=== PATIENT | male | born 1980 | race Caucasian/White ===

== ENCOUNTER 2021-02-06 07:58 | Outpatient (REF) | payer BC, SELFPAY ==
[2021-02-06 08:18] LABS: COVID-19 Test Negative (Negative)
== END 2021-02-06 07:59 | disposition home or self-care (01) ==
LOC: HO.LAB 07:58
PROVIDERS: Visit Provider Internal Medicine
DX: Z20.822 Contact with and (suspected) exposure to COVID-19 (principal)
CPT/HCPCS: 36415; 87635; C9803

== ENCOUNTER 2021-07-15 06:52 | Outpatient (REF) | payer BC, SELFPAY ==
[2021-07-15 11:25] LABS: Appearance Urine CLEAR; Color Urine YELLOW; Glucose Urine UA NEG (NEG); Leukocyte Esterase Urine NEG (NEG); Nitrite Urine NEG (NEG); Specific Gravity - Urine <= 1.005 (1.005-1.025); Urine Blood NEG (NEG); Urine Ketones NEG (NEG); Urine Protein NEG (NEG-TRACE)
[2021-07-15 11:59] LABS: Alanine Aminotransferase 48 U/L (0-40); Albumin Level 4.6 g/dL (3.5-5.0); Alkaline Phosphatase 74 U/L (39-117); Anion Gap 17 (12-20); Aspartate Amino Transferase 38 U/L (5-37); Bilirubin Total 0.4 mg/dL (0.0-1.0); Blood Urea Nitrogen 8 mg/dL (9-16); Calcium 9.2 mg/dL (8.4-10.2); Carbon Dioxide 24 mmol/L (22-29); Chloride 102 mmol/L (96-108); Cholesterol 199 mg/dL; Estimated Glomerular Filt Rate > 60; Glucose Fasting 101 mg/dL (60-99); HDL Cholesterol 73 mg/dL; LDL Cholesterol Calculated 111 mg/dl; Potassium 4.1 mmol/L (3.3-5.1); Sodium 139 mmol/L (135-145); Total Protein 7.3 g/dL (6.5-8.0); Triglycerides 76 mg/dL
== END 2021-07-15 06:53 | disposition home or self-care (01) ==
LOC: HO.HMGCLDS 06:52
PROVIDERS: PCP Nurse Practitioner Family; Visit Provider Nurse Practitioner Family
DX: Z00.00 Encounter for general adult medical examination without abnormal findings (principal)
CPT/HCPCS: 36415; 80053; 80061; 81003; 84443

== ENCOUNTER 2021-07-27 06:44 | Outpatient (REF) | payer BC, SELFPAY ==
[2021-07-27 12:19] LABS: HBS Num1 2.52 mIU/mL (0-7.99); HBsAGNum1 0.18 S/CO (0.00-0.99); Hepatitis B Surface Antigen Negative (Negative); ~Hepatitis B Surface Antibody NONREACTIVE (Nonreactive)
[2021-07-27 12:57] LABS: HBc Num1 0.05 S/CO (0.00-0.79); Hepatitis B Core Antibody Nonreactive (Nonreactive); ~HepC Num1 0.06 S/CO (0.00-0.79); ~Hepatitis C Antibody Nonreactive (Nonreactive)
[2021-07-29 09:24] LABS: Hepatitis A Antibody IgM 0.15 Index (0-0.79); ~Hepatitis A Antibody IgM Nonreactive (Nonreactive)
== END 2021-07-27 06:45 | disposition home or self-care (01) ==
LOC: HO.HMGCLDS 06:44
PROVIDERS: PCP Nurse Practitioner Family; Visit Provider Nurse Practitioner Family
DX: R74.8 Abnormal levels of other serum enzymes (principal)
CPT/HCPCS: 36415; 86704; 86706; 86709; 86803; 87340

== ENCOUNTER 2021-08-19 08:08 | Outpatient (REF) | payer BC, SELFPAY ==
--- NOTE | ~2021-08-19 | US_ITS ---
EXAMINATION: US ABDOMEN COMPLETE CLINICAL INFORMATION: Abnormal levels of other serum enzymes. COMPARISON: MRI abdomen 08/20/2019. Ultrasound abdomen complete 07/25/2019. TECHNIQUE: Real-time imaging of the abdominal viscera. FINDINGS: PANCREAS: The body and the tail of the pancreas is homogeneous echotexture without enlargement. ABDOMINAL AORTA: The proximal, mid, and distal segments are normal in caliber. INFERIOR VENA CAVA: Visualized portions are normal. LIVER: The liver is normal in size. The liver contour is normal. Is increased liver echogenicity. No focal hepatic lesion. There is no intrahepatic biliary duct dilatation seen. GALLBLADDER: Gallbladder wall thickness is 0.27 cm.. The gallbladder is physiologically distended without evidence of stones, sludge, polyps, wall thickening or pericholecystic fluid. COMMON BILE DUCT: Normal in caliber measuring 0.31 cm in diameter. RIGHT KIDNEY: Normal. No hydronephrosis. No renal calculi or focal parenchymal lesions. The kidney measures 12.5 cm in maximum dimension. LEFT KIDNEY: Normal. No hydronephrosis. No renal calculi or focal parenchymal lesions. The kidney measures 12.5 cm in maximum dimension. SPLEEN: Normal. The spleen measures 10.0 cm in maximum dimension. FREE FLUID: None. US/US abdomen complete IMPRESSION: Diffuse increased liver echogenicity without focal lesion. There is no hepatomegaly. Rest of the abdominal ultrasound is unremarkable.
== END 2021-08-19 08:09 | disposition home or self-care (01) ==
LOC: HO.HMGCX 08:08
PROVIDERS: PCP Nurse Practitioner Family; Visit Provider Nurse Practitioner Family
DX: R74.8 Abnormal levels of other serum enzymes (principal)
CPT/HCPCS: 76700

== ENCOUNTER 2021-10-02 10:12 | Outpatient (REF) | payer BC, SELFPAY ==
--- NOTE | ~2021-10-02 | XR_ITS ---
EXAMINATION: XR RIBS, RIGHT CLINICAL INFORMATION: Pleurodynia COMPARISON: January 09, 2020 and July 20, 2019 TECHNIQUE: 3 views of the right ribs were obtained. PA chest FINDINGS: There is no evidence of acute parenchymal disease, pneumothorax, or pleural effusion. Heart normal size. No evidence of pulmonary edema. Status post previous vertebral plasty what appears to be T6. There are old fractures seen involving the right second and fourth ribs as well as a few left ribs. There is a new region of subpleural density measuring approximately 5.2 cm in vertical length and 1.3 cm in width within the mid lateral right lung. Adjacent to the pleural density there are nondisplaced fractures involving the seventh and eighth ribs. No pneumothorax. XR/XR ribs RT min 3V w CXR1V IMPRESSION: Multiple old healed right and left rib fractures. What appear to be new fractures since study of January 09, 2020 involving the lateral aspects of the right seventh and eighth ribs with adjacent pleural thickening. Clinical correlation to recent history of trauma is recommended.
== END 2021-10-02 10:13 | disposition home or self-care (01) ==
LOC: HO.HMGCX 10:12
PROVIDERS: PCP Nurse Practitioner Family; Visit Provider Nurse Practitioner Family
DX: R07.81 Pleurodynia (principal)
CPT/HCPCS: 71101

== ENCOUNTER → 2021-11-17 15:24 | Outpatient (BNVA) | payer BC, SELFPAY | PROVIDERS: PCP Nurse Practitioner Family; Referring Provider Nurse Practitioner Family; Visit Provider Nurse Practitioner ==

== ENCOUNTER → 2022-06-22 16:47 | Outpatient (BNVA) | payer OTHER, SELFPAY | PROVIDERS: PCP Nurse Practitioner Family; Visit Provider Nurse Practitioner | DX: R79.89 Other specified abnormal findings of blood chemistry (principal); Z80.0 Family history of malignant neoplasm of digestive organs; K63.5 Polyp of colon | CPT/HCPCS: 99212 ==

== ENCOUNTER 2022-07-06 09:14 | Outpatient (REF) | payer OTHER, SELFPAY ==
--- NOTE | ~2022-07-06 | XR_ITS ---
EXAMINATION: XR HIP, RIGHT. XR FEMUR, RIGHT. XR KNEE, RIGHT. CLINICAL INFORMATION: Right hip and knee pain COMPARISON: Right hip 11/15/2016. Right femur 10/07/2006. TECHNIQUE: AP and frog-lateral views of the right hip. AP and lateral radiographs of the right femur. 3 views of the right knee. FINDINGS: Stable appearance of the right hip fracture fixation and hardware. Mild right hip osteoarthritis with spurring along the superior acetabular rim. No acute or new abnormality. Right femur: Distal femur fracture fixation hardware has been removed. Fractures appear completely healed. Right knee: Mild tricompartmental osteoarthritis. No joint effusion. No acute abnormality. XR/XR hip RT min 2V IMPRESSION: RIGHT HIP: Healed fracture fixation. Mild right hip osteoarthritis. No change. RIGHT FEMUR/KNEE: Healed distal femur fracture. Mild tricompartmental osteoarthritis of the right knee.
--- NOTE | ~2022-07-06 | XR_ITS ---
EXAMINATION: XR HIP, RIGHT. XR FEMUR, RIGHT. XR KNEE, RIGHT. CLINICAL INFORMATION: Right hip and knee pain COMPARISON: Right hip 11/15/2016. Right femur 10/07/2006. TECHNIQUE: AP and frog-lateral views of the right hip. AP and lateral radiographs of the right femur. 3 views of the right knee. FINDINGS: Stable appearance of the right hip fracture fixation and hardware. Mild right hip osteoarthritis with spurring along the superior acetabular rim. No acute or new abnormality. Right femur: Distal femur fracture fixation hardware has been removed. Fractures appear completely healed. Right knee: Mild tricompartmental osteoarthritis. No joint effusion. No acute abnormality. XR/XR knee RT 2V IMPRESSION: RIGHT HIP: Healed fracture fixation. Mild right hip osteoarthritis. No change. RIGHT FEMUR/KNEE: Healed distal femur fracture. Mild tricompartmental osteoarthritis of the right knee.
--- NOTE | ~2022-07-06 | US_ITS ---
EXAMINATION: US ABDOMEN LIMITED CLINICAL INFORMATION: Abnormal LFTs. COMPARISON: Ultrasound abdomen complete 08/19/2021 and 07/25/2019. MRI abdomen 08/20/2019. TECHNIQUE: Real-time imaging of the right upper quadrant abdominal viscera. FINDINGS: PANCREAS: Normal. LIVER: Normal. The liver is normal in size. The liver contour is normal. Parenchymal echogenicity is normal. No focal hepatic lesion. There is no intrahepatic biliary duct dilatation seen. GALLBLADDER: The gallbladder wall thickness is 1.0 cm. There is fluid within the gallbladder wall. The gallbladder is physiologically distended without evidence of stones, sludge, polyps, or pericholecystic fluid. COMMON BILE DUCT: Normal in caliber measuring 0.3 cm in diameter. RIGHT KIDNEY: Normal. No hydronephrosis. No renal calculi or focal parenchymal lesions. The kidney measures 13.4 cm in maximum dimension. FREE FLUID: None. US/US abdomen limited IMPRESSION: No echogenic stones seen. However, there is mild thickened gallbladder wall with fluid within the gallbladder wall suspicious for acalculus cholecystitis. Correlate with clinical exam. The visualized liver, CBD and right kidney are unremarkable.
--- NOTE | ~2022-07-06 | XR_ITS ---
EXAMINATION: XR HIP, RIGHT. XR FEMUR, RIGHT. XR KNEE, RIGHT. CLINICAL INFORMATION: Right hip and knee pain COMPARISON: Right hip 11/15/2016. Right femur 10/07/2006. TECHNIQUE: AP and frog-lateral views of the right hip. AP and lateral radiographs of the right femur. 3 views of the right knee. FINDINGS: Stable appearance of the right hip fracture fixation and hardware. Mild right hip osteoarthritis with spurring along the superior acetabular rim. No acute or new abnormality. Right femur: Distal femur fracture fixation hardware has been removed. Fractures appear completely healed. Right knee: Mild tricompartmental osteoarthritis. No joint effusion. No acute abnormality. XR/XR femur RT 2V IMPRESSION: RIGHT HIP: Healed fracture fixation. Mild right hip osteoarthritis. No change. RIGHT FEMUR/KNEE: Healed distal femur fracture. Mild tricompartmental osteoarthritis of the right knee.
== END 2022-07-06 09:15 | disposition home or self-care (01) ==
LOC: HO.US 09:14
PROVIDERS: PCP Nurse Practitioner Family; Visit Provider Nurse Practitioner
DX: M25.551 Pain in right hip (principal); M25.561 Pain in right knee; M89.8X5 Other specified disorders of bone, thigh; R79.89 Other specified abnormal findings of blood chemistry
CPT/HCPCS: 73502; 73552; 73560; 76705

== ENCOUNTER 2022-07-19 10:59 | Outpatient (REF) | payer OTHER, SELFPAY ==
[2022-07-19 12:48] LABS: Ferritin 82 ng/mL (20-250)
[2022-07-21 13:47] LABS: Alpha Fetoprotein 2.8 ng/mL (<6.1)
[2022-07-22 12:42] LABS: Mitochondrial Antibodies NEGATIVE (NEGATIVE)
[2022-07-24 16:02] LABS: Smooth Muscle Antibody <20 U (<20)
== END 2022-07-19 11:00 | disposition home or self-care (01) ==
LOC: HO.LAB 10:59
PROVIDERS: PCP Nurse Practitioner Family; Visit Provider Nurse Practitioner
DX: Z00.00 Encounter for general adult medical examination without abnormal findings (principal); R79.89 Other specified abnormal findings of blood chemistry; Z13.220 Encounter for screening for lipoid disorders; Z13.29 Encounter for screening for other suspected endocrine disorder; Z80.0 Family history of malignant neoplasm of digestive organs
CPT/HCPCS: 36415; 82105; 82728; 86015; 86255; 86256

== ENCOUNTER → 2022-08-26 08:55 | Outpatient (BNVA) | payer OTHER, SELFPAY | PROVIDERS: PCP Nurse Practitioner Family; Visit Provider Nurse Practitioner Family | DX: H53.9 Unspecified visual disturbance (principal); F09 Unspecified mental disorder due to known physiological condition; Z87.820 Personal history of traumatic brain injury; Z82.49 Family history of ischemic heart disease and other diseases of the circulatory system | CPT/HCPCS: 99202 ==

== ENCOUNTER → 2022-08-27 07:51 | Outpatient (REF) | payer OTHER, SELFPAY ==
--- NOTE | ~2022-08-27 | NM_ITS ---
EXAMINATION: BILIARY TRACT IMAGING STUDY WITH CCK CLINICAL INFORMATION: Elevated liver function tests, abnormal gallbladder on ultrasound.. COMPARISON: No previous biliary scan is available for comparison. Abdominal ultrasound dated 07/06/2022 is available for comparison.. TECHNIQUE: Serial gamma scintillation camera images were obtained over the abdomen for a total observation period of 90 minutes following the intravenous administration of 5 mCi Tc-99m Mebrofenin. FINDINGS: There is good concentration of activity in the liver by 5 minutes post injection. Biliary activity is visualized by 10 minutes. The gallbladder is well visualized by 15 minutes. Small bowel is well visualized by 75 minutes. At 60 minutes post radiopharmaceutical injection, a 30-minute infusion of 1.8 micrograms Sincalide was then begun and an additional 40 minutes of images were obtained. There is good emptying of the gallbladder. By the end of the study there is good clearance of activity from the liver and visualization of diffuse small bowel activity. The calculated gallbladder ejection fraction is 93% (normal gallbladder ejection fraction is greater than 35%). NM/NM hepatobiliary w pharm IMPRESSION: Visualization of the gallbladder is evidence of a patent cystic duct and strong evidence against the diagnosis of acute cholecystitis. The common bile duct is patent. Gallbladder emptying and ejection fraction are normal. Liver function appears normal.
== END ==
LOC: HO.NUCMED 07:51
PROVIDERS: Visit Provider Nurse Practitioner
DX: R79.89 Other specified abnormal findings of blood chemistry (principal); R93.2 Abnormal findings on diagnostic imaging of liver and biliary tract
CPT/HCPCS: 78227; A9537

== ENCOUNTER 2022-10-05 07:57 | Outpatient (REF) | payer OTHER, SELFPAY ==
--- NOTE | ~2022-10-05 | MR_ITS ---
EXAMINATION: MR head/brain wo con CLINICAL INFORMATION: Unspecified visual disturbance. Self-reported head injury 17 years ago with memory loss, a aphasia, emotional changes and ocular migraines. COMPARISON: MR angiography head 04/09/2017, CT head 05/21/2016. TECHNIQUE: Routine unenhanced MRI of the brain. FINDINGS: Diffusion-weighted images demonstrate no evidence of acute infarcts. The ventricles and sulci are normal in size and configuration. No intracranial hemorrhage, tumors or acute infarcts identified. No focal parenchymal lesions of the brain or abnormal extra-axial fluid collections visualized. The craniocervical junction cerebellar tonsils are normal in appearance. No suspicious marrow abnormalities identified. Normal flow-related signal intensity is noted within the major intracranial vessels and dural sinuses. The orbits and globes are normal in appearance. No significant mucosal thickening or retained secretions identified in the visualized paranasal sinuses, mastoid air cells and middle ear cavities. MR/MR head/brain wo con IMPRESSION: Normal unenhanced MRI of the brain.
== END 2022-10-05 07:58 | disposition home or self-care (01) ==
LOC: HO.MRI 07:57
PROVIDERS: PCP Nurse Practitioner Family; Visit Provider Nurse Practitioner Family
DX: S06.9X9A Unspecified intracranial injury with loss of consciousness of unspecified duration, initial encounter (principal); H53.9 Unspecified visual disturbance; Z82.49 Family history of ischemic heart disease and other diseases of the circulatory system
CPT/HCPCS: 70551

== ENCOUNTER 2022-10-15 08:01 | Outpatient (REF) | payer OTHER, SELFPAY ==
--- NOTE | 2022-10-15 08:07 | EEG_ITS ---
This is 16-channel EEG , with an EKG lead. The patient was reported awake during the tracing. Background EEG rhythm is about 10Hz, 5 to 17 microvolts posteriorly and lower amplitude fast anteriorly. Patient transitioned in and out of drowsiness. No sharp wave spikes or paroxysmal tendency noted. Photic stimulation does not produce any significant abnormality. Hypoventilation is not performed. Cardiac lead does not reveal any significant abnormality. IMPRESSION: No significant abnormality noted on this EEG. MD JERAD Hudson/MONICA / [id number]
== END 2022-10-15 08:02 | disposition home or self-care (01) ==
LOC: HO.NEURO 08:01
PROVIDERS: PCP Nurse Practitioner Family; Visit Provider Nurse Practitioner Family
DX: H53.9 Unspecified visual disturbance (principal); S06.9X9A Unspecified intracranial injury with loss of consciousness of unspecified duration, initial encounter
CPT/HCPCS: 95816

== ENCOUNTER 2022-10-20 13:21 | Outpatient (REF) | payer OTHER, SELFPAY ==
--- NOTE | ~2022-10-20 | XR_ITS ---
EXAMINATION: XR LUMBOSACRAL SPINE CLINICAL INFORMATION: Lower back pain. COMPARISON: None TECHNIQUE: AP and lateral views of the lumbar spine and lateral view of the lumbosacral junction. FINDINGS: The vertebral bodies and posterior elements are normal. The disc spaces are preserved and the vertebral alignment is normal. The paraspinal soft tissues are normal. XR/XR lumbar spine 2-3V IMPRESSION: Unremarkable examination.
== END 2022-10-20 13:22 | disposition home or self-care (01) ==
LOC: HO.XRAY 13:21
PROVIDERS: PCP Nurse Practitioner Family; Visit Provider Nurse Practitioner Family
DX: M54.50 Low back pain, unspecified (principal); G89.29 Other chronic pain
CPT/HCPCS: 72100

== ENCOUNTER 2023-01-05 09:02 | Day surgery (SDC) | payer OTHER, SELFPAY ==
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
[2023-01-05 10:12] VITALS: BMI 28.3
[2023-01-05 10:17] VITALS: BP 112/75; PULSE 75; RESP 16; TEMP 36.1; O2SAT 97
[2023-01-05] MEDS: Lactated Ringers 1,000 ML 100 ML IVCONT (10:19)
--- NOTE | 2023-01-05 10:34 | MHC.SHP ---
Pre-Procedural Eval Section A Date of Service: 01/05/23 The patient is an INPATIENT: No The History & Physical has been completed within 30 days and I have reviewed it.: No Section B Chief Complaint: Colon cancer screening, history of colon polyps Relevant Family History (Specify if Yes): Yes Relevant Social History: Tobacco Use (Uses E cigarettes) Present Medications: see Short Stay Collaborative assessment Medical History: Significant History (History of colon polyps, elevated LFTs) History of Previous Operations: Relevant previous surgery/procedure and date(s) (Status post reconstruction of ligament of knee joint) Allergies: Allergies Allergy/AdvReac Type Severity Reaction Status Date / Time shellfish derived Allergy Severe ANAPHYLAXIS Verified 07/06/22 08:20 [SHELLFISH DERIVED] cats Allergy Intermediate sneezing, Uncoded 08/26/22 09:14 coughing itchy eyes Review of Systems Sugical H&P ROS: Negative: Constitution, Cardiovascular, Respiratory and Gastrointestinal Exam Surgical H&P Exam: Normal: Heart, Normal: Lungs, Normal: Extremities and Normal: Abdomen Plan Diagnosis/Plan: Unchanged I have reviewed the history and physical and performed a pertinent physical examination on my patient. No changes have occurred unless specified. Time Spent With Patient Time: Total time managing care of this patient today ____ minutes.
--- NOTE | 2023-01-05 10:38 | W.PM.OPN ---
Operative Note Operative Note Date of Service: 01/05/23 Narrative: COLONOSCOPY TILL CECUM Pre-op diagnosis: Colon cancer screening, history of colon polyps, family history of colon cancer Post-op diagnosis:? Diverticulosis, hemorrhoids Endoscopist:? Yarelis Flores MD Anesthesia:?MAC Consent: Indications for the procedure and potential complications of bleeding, perforation, reaction to medications and missed diagnosis were discussed with the patient and informed consent was obtained. Instrument: Olympus CF H 190 L variable stiffness adult colonoscope Monitoring: Vital signs and clinical assessment, intermittent blood pressure monitoring, continuous EKG monitoring, Pulse oximetry and Carbon Dioxide monitoring were done throughout the procedure. Please see anesthesia flowsheet. Colon withdrawl time was 17 minutes. Procedure: The patient was placed in the left lateral decubitis position and pre-procedure medications were administered. After a digital rectal examination of the ano-rectum, the video colonoscope was inserted into the rectum and advanced through the colon to the cecum. The colonoscope was slowly withdrawn in a retrograde panoramic fashion and the colon mucosa was carefully examined including a retroflexed view of the rectum. Findings and interventions are described below. Procedure Difficulty: Colon was long and tortuous and there was some loop formation. LLQ pressure was applied to intubate the cecum Findings: Terminal Ileum: Not evaluated Cecum: Normal Ascending Colon: Normal Transverse Colon: Normal Descending Colon: Normal Sigmoid Colon: Moderate diverticulosis Rectum: Normal Ano-rectum: Moderate internal hemorrhoids Colon preparation: Good after copious irrigation Impression and Post Procedure Diagnosis: Colonoscopy Findings: No polyps were detected. Moderate diverticulosis seen in the sigmoid colon Moderate hemorrhoids on retroflexed exam. Plan: Patient to schedule a FU appointment in the GI Clinic with Rajni Gotti NP. Repeat Colonoscopy in 5 years due to hx of adenomatous colon polyps. Above findings were reviewed with the patient and diverticulosis handout was given in the discharge area
--- NOTE | 2023-01-05 10:39 | MHC.SHP ---
Pre-Procedural Eval Section A Date of Service: 01/05/23 The patient is an INPATIENT: No The History & Physical has been completed within 30 days and I have reviewed it.: No Section B Chief Complaint: Colon cancer screening, history of colon polyps Relevant Family History (Specify if Yes): Yes Relevant Social History: Tobacco Use (Uses E cigarettes) Present Medications: see Short Stay Collaborative assessment Medical History: Significant History (Elevated LFTs, history of colon polyps) History of Previous Operations: Relevant previous surgery/procedure and date(s) (Status post reconstruction of ligament of knee joint) Allergies: Allergies Allergy/AdvReac Type Severity Reaction Status Date / Time shellfish derived Allergy Severe ANAPHYLAXIS Verified 07/06/22 08:20 [SHELLFISH DERIVED] cats Allergy Intermediate sneezing, Uncoded 08/26/22 09:14 coughing itchy eyes Review of Systems Sugical H&P ROS: Negative: Constitution, Cardiovascular, Respiratory and Gastrointestinal Exam Surgical H&P Exam: Normal: Heart, Normal: Lungs, Normal: Extremities and Normal: Abdomen Plan Diagnosis/Plan: Change (Proceed with colonoscopy) I have reviewed the history and physical and performed a pertinent physical examination on my patient. No changes have occurred unless specified. Time Spent With Patient Time: Total time managing care of this patient today ____ minutes.
[2023-01-05 11:23] VITALS: BP 111/70; PULSE 70; RESP 16; TEMP 36.3; O2SAT 99
[2023-01-05 11:38] VITALS: BP 113/74; PULSE 70; RESP 16; TEMP 36.4; O2SAT 99
[2023-01-05 11:46] VITALS: BP 111/79; PULSE 60; RESP 16; O2SAT 99
== END 2023-01-05 12:36 | disposition home or self-care (01) ==
PROVIDERS: PCP Nurse Practitioner Family; Visit Provider Internal Medicine Gastroenterology
PROC: 0DJD8ZZ Inspection of Lower Intestinal Tract, Via Natural or Artificial Opening Endoscopic (ICD-10-PCS; CPT 45378; principal; 2023-01-05 10:10)
DX: Z12.11 Encounter for screening for malignant neoplasm of colon (principal); Z86.010 Personal history of colon polyps; K57.30 Diverticulosis of large intestine without perforation or abscess without bleeding; K64.8 Other hemorrhoids; K76.0 Fatty (change of) liver, not elsewhere classified; R79.89 Other specified abnormal findings of blood chemistry; F41.8 Other specified anxiety disorders; Z87.820 Personal history of traumatic brain injury; F17.290 Nicotine dependence, other tobacco product, uncomplicated
CPT/HCPCS: 45378

== ENCOUNTER → 2023-02-23 13:56 | Outpatient (BNVA) | payer OTHER, SELFPAY | PROVIDERS: PCP Nurse Practitioner Family; Visit Provider Nurse Practitioner Family | DX: S06.9X9D Unspecified intracranial injury with loss of consciousness of unspecified duration, subsequent encounter (principal); H53.9 Unspecified visual disturbance; F09 Unspecified mental disorder due to known physiological condition | CPT/HCPCS: 99212 ==

== ENCOUNTER 2023-03-09 09:36 | Outpatient (REF) | payer OTHER, SELFPAY ==
--- NOTE | ~2023-03-09 | XR_ITS ---
EXAMINATION: LEFT SHOULDER, LEFT ELBOW CLINICAL INFORMATION: Elbow and shoulder pain COMPARISON: Chest and RIBS 10/02/2021, Chest radiograph 01/09/2020 and 07/20/2019 TECHNIQUE: 3 views left shoulder, 3 views left elbow FINDINGS: Shoulder: No significant bone, joint or soft tissue abnormality is seen. Incidental note made of kyphosis kyphoplasty cement in T6. Clustered calcifications overlying the eighth posterior lateral medial left rib may represent kyphoplasty cement in a small vein. Elbow: No bone, joint or soft tissue abnormality is seen. XR/XR elbow LT 2V IMPRESSION: No evidence of an acute injury. Incidental findings as described above.
--- NOTE | ~2023-03-09 | XR_ITS ---
EXAMINATION: LEFT SHOULDER, LEFT ELBOW CLINICAL INFORMATION: Elbow and shoulder pain COMPARISON: Chest and RIBS 10/02/2021, Chest radiograph 01/09/2020 and 07/20/2019 TECHNIQUE: 3 views left shoulder, 3 views left elbow FINDINGS: Shoulder: No significant bone, joint or soft tissue abnormality is seen. Incidental note made of kyphosis kyphoplasty cement in T6. Clustered calcifications overlying the eighth posterior lateral medial left rib may represent kyphoplasty cement in a small vein. Elbow: No bone, joint or soft tissue abnormality is seen. XR/XR shoulder LT min 2V IMPRESSION: No evidence of an acute injury. Incidental findings as described above.
--- NOTE | 2023-03-09 10:27 | ECG_ITS ---
Test Reason : tachycardia Blood Pressure : / mmHG Vent. Rate : 068 BPM Atrial Rate : 068 BPM P-R Int : 182 ms QRS Dur : 082 ms QT Int : 376 ms P-R-T Axes : 033 062 049 degrees QTc Int : 399 ms Normal sinus rhythm Normal ECG No previous ECGs available Referred By: Yanelis Castellano Electronically Signed By:YORDY ROSE
[2023-03-09 11:14] LABS: MANUAL DIFF FLAG NO
[2023-03-09 11:23] LABS: Basophils Percent Auto 0.5 % (0-2); Eosinophils Absolute Auto 0.1 X10*3/uL (0.0-0.4); Hematocrit 43.5 % (42.0-52.0); Hemoglobin 14.7 g/dl (14.0-18.0); Imm Gran Abs Auto 0.02 X10*3/uL (0.00-0.03); Imm Gran Pct Auto 0.5 % (0.0-0.4); Lymphocytes Absolute Auto 1.9 X10*3/uL (1.2-4.9); Lymphocytes Percent Auto 45.4 % (20-40); Mean Corpuscular HGB Conc 33.8 g/dl (31.0-36.0); Mean Corpuscular Hemoglobin 29.7 pg (27.0-33.0); Mean Corpuscular Volume 87.9 fL (80.0-98.0); Mean Platelet Volume 10.2 fL (9.4-12.4); Monocytes Absolute Auto 0.4 X10*3/uL (0.1-1.2); Monocytes Percent Auto 10.5 % (2-11); Neutrophils Absolute Auto 1.7 x10*3/uL (2.0-8.3); Neutrophils Percent Auto 41.1 % (45-73); Platelet Count 252 X10*3/uL (160-400); Red Blood Count 4.95 X10*6/uL (4.60-5.80); Red Cell Distribution Width 12.1 % (11.0-16.0); White Blood Count 4.1 X10*3/uL (4.8-10.8)
[2023-03-09 11:26] LABS: Appearance Urine Clear; Color Urine Yellow; Glucose Urine UA Negative (Negative); Leukocyte Esterase Urine Negative (Negative); Nitrite Urine Negative (Negative); Specific Gravity - Urine <= 1.005 (1.005-1.025); Urine Blood Negative (Negative); Urine Ketones Negative (Negative); Urine Protein Negative (Neg-Trace)
[2023-03-09 12:12] LABS: Alanine Aminotransferase 25 U/L (0-40); Albumin Level 4.4 g/dL (3.5-5.0); Alkaline Phosphatase 72 U/L (39-117); Anion Gap 12 (12-20); Aspartate Amino Transferase 24 U/L (5-37); Bilirubin Total 0.6 mg/dL (0.0-1.0); Blood Urea Nitrogen 8 mg/dL (9-16); Calcium 9.3 mg/dL (8.4-10.2); Carbon Dioxide 25 mmol/L (22-29); Chloride 105 mmol/L (96-108); Cholesterol 167 mg/dL; Estimated Glomerular Filt Rate > 60; Glucose Fasting 87 mg/dL (60-99); HDL Cholesterol 50 mg/dL; LDL Cholesterol Calculated 99 mg/dl; Potassium 4.2 mmol/L (3.3-5.1); Sodium 138 mmol/L (135-145); Total Protein 7.3 g/dL (6.5-8.0); Triglycerides 90 mg/dL
[2023-03-09 12:27] LABS: TSH reflex Free T4 1.12 uIU/mL (0.32-4.0)
== END 2023-03-09 09:37 | disposition home or self-care (01) ==
LOC: HO.HMGCX 09:36
PROVIDERS: Absent Provider Nurse Practitioner Family; PCP Nurse Practitioner Family; Visit Provider Nurse Practitioner Family
DX: Z00.00 Encounter for general adult medical examination without abnormal findings (principal); M25.552 Pain in left hip; M25.512 Pain in left shoulder; M25.522 Pain in left elbow; R00.0 Tachycardia, unspecified
CPT/HCPCS: 36415; 73030; 73070; 80053; 80061; 81003; 84443; 85025; 93005

== ENCOUNTER 2023-03-26 11:26 | Outpatient (REF) | payer OTHER, SELFPAY ==
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
== END 2023-03-26 11:27 | disposition home or self-care (01) ==
LOC: HO.MRI 11:26
PROVIDERS: PCP Nurse Practitioner Family; Visit Provider Nurse Practitioner Family
DX: H53.9 Unspecified visual disturbance (principal); Z82.49 Family history of ischemic heart disease and other diseases of the circulatory system
CPT/HCPCS: 70544

== ENCOUNTER 2023-06-15 15:05 | Outpatient (AMB) | payer OTHER, SELFPAY ==
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
[2023-06-15 15:23] VITALS: BP 110/78; PULSE 92; O2SAT 94
== END 2023-06-15 16:02 | disposition home or self-care (01) ==
PROVIDERS: PCP Nurse Practitioner Family; Visit Provider Nurse Practitioner Family
DX: S06.9X9A Unspecified intracranial injury with loss of consciousness of unspecified duration, initial encounter (principal); R41.89 Other symptoms and signs involving cognitive functions and awareness; H53.9 Unspecified visual disturbance; Z04.3 Encounter for examination and observation following other accident
CPT/HCPCS: 99214

== ENCOUNTER → 2023-06-15 15:05 | Outpatient (BNVA) | payer OTHER, SELFPAY | PROVIDERS: PCP Nurse Practitioner Family; Visit Provider Nurse Practitioner Family | DX: S06.9X9A Unspecified intracranial injury with loss of consciousness of unspecified duration, initial encounter (principal); V89.2XXA Person injured in unspecified motor-vehicle accident, traffic, initial encounter; Y93.9 Activity, unspecified; Y92.410 Unspecified street and highway as the place of occurrence of the external cause; Y99.8 Other external cause status; H53.9 Unspecified visual disturbance; F09 Unspecified mental disorder due to known physiological condition | CPT/HCPCS: 99212 ==

== ENCOUNTER 2023-07-07 13:01 | Outpatient (AMB) | payer OTHER, SELFPAY ==
--- NOTE | 2023-07-07 13:04 | A.OFFPC_ITS ---
Vital Signs 07/07/23 13:06 Height 5 ft 11 in Weight 216 lb BMI 30.1 BP 122/80 Blood Pressure Location Rt brachial Position Sitting Pulse 103 H Pulse Source Pulse Oximeter Pulse Oximetry (%) 97 Oxygen Delivery Method Room Air Intake Visit Reasons: PE Allergies shellfish derived [SHELLFISH DERIVED] Allergy (Severe, Verified 07/07/23 13:43) ANAPHYLAXIS ragweed pollen Adverse Reaction (Mild, Verified 07/07/23 13:43) Unknown cats Allergy (Intermediate, Uncoded 07/07/23 13:43) sneezing, coughing itchy eyes Medication List - Last Reconciled 07/07/23 by SID Chi-MONSERRAT doxycycline hyclate 100 mg PO BID 14 days Grab bar use daily NS mecobalamin (vitamin B12) mcg PO methylphenidate HCl 20 mg PO QAM 7 days methylphenidate HCl 20mg qam and 10mg q afternoon orally. Partial Fill upon patient request. 7 days multivitamin 1 tab PO DAILY xpjcbzy-vvyj-wirnx-oreg-capryl 100 mg-150 mg- 50 mg-150 mg caps PO Tobacco use date assessed: 02/23/23 Dental Screening Dental Screen Date: 07/07/23 Did you have a dental visit in the last 12 months?: Yes Did you have a dental problem in the last 6 months where you did not have access to dental care?: No Was dental information given to patient?: Patient has dentist HPI PE HPI Details Pt is here for a PE. Will order labs. Pt reports pulling an engorged tick off his left thigh yesterday. He does not know how long it was attached. He noticed a circular rash around the bite. Will send doxy x14 days. [facility] Medical History Anxiety and depression History of degenerative disc disease Ocular migraine TBI (traumatic brain injury) Surgical History History of hip replacement Status post reconstruction of ligament of knee joint Family History Maternal Uncle Substance use disorder Maternal Grandmother Mental health disorder Mother Brain aneurysm Lacunar stroke Sister Brain aneurysm Social History Housing: Apartment Alcohol intake: former Patient Tobacco Use Status: Never used Tobacco e-Cigarette/Vaping Use: Currently Using Second Hand Smoke Exposure: Yes Current occupational status: employed Current occupational exposures/hazards: Yes Cognitive needs: No Hearing needs: No Vision needs: No Questionnaire Thrive Questionnaire Date Thrive assessed: 07/06/22 I am a: Patient What is your living situation today?: I have a steady place to live Within the past 12 months, did the food you bought not last and you didn't have the money to get more?: I choose not to answer this question Within the past 12 months, did you worry whether your food would run out before you got money to buy more?: Sometimes True Please select the resources that you would like help with: None AUDIT C Alcohol Use Questionnaire (AUDIT-C) 1. How often do you have a drink containing alcohol?: Never 3. How often do you have six or more drinks on one occasion?: Never Total Score: 0 BRENDA-7 AMB Questionnaire BRENDA-7 Date BRENDA - 7 assessed: 07/06/22 Feeling nervous, anxious, or on edge: 2 = More than half the days Not being able to stop or control worryin = Several days Worrying too much about different things: 1 = Several days Trouble relaxin = Several days Being so restless that it is hard to sit still: 1 = Several days Becoming easily annoyed or irritable: 1 = Several days Feeling afraid as if something awful might happen: 1 = Several days Total BRENDA-7 score (0-4 normal; 5-9 mild; 10-14 moderate; 15-21 severe): 8 Source: Developed by Drs. Fady Brown, Perri Sommer, Magdi Robles and colleagues, with an educational kathleen from [employer]. Review of Systems Const Denies chills and Denies fever(s) Eyes Denies blurry vision ENT Denies vertigo, Denies dizziness and Denies sore throat Card Denies chest pain at rest, Denies chest pain with activity, Denies diaphoresis, Denies dyspnea and Denies dyspnea on exertion Resp Denies cough, Denies dyspnea, Denies dyspnea on exertion and Denies wheezing GI Denies abdominal pain, Denies melena, Denies hematochezia, Denies constipation, Denies diarrhea and Denies loose stools Denies hematuria Musc Denies numbness and Denies tingling Skin/Breast Denies lesions Neuro Denies vertigo, Denies dizziness, Denies numbness and Denies tingling Psych Denies anxiety, Denies depression, Denies homicidal ideation, Denies suicidal ideation and Denies other (substance abuse) Aller/Immun Denies wheezing Physical exam (Primary Care) Vital Signs: Last Vital Signs Pulse 103 H 07/07/23 13:06 BP 122/80 07/07/23 13:06 Pulse Ox 97 07/07/23 13:06 Oxygen Delivery Method Room Air 07/07/23 13:06 BMI result Body Mass Index 30.1 Tobacco/Smoking Status: Tobacco use Status Tobacco use date assessed 02/23/23 07/07/23 13:06 Patient Tobacco Use Status Never used Tobacco 07/07/23 13:06 e-Cigarette/Vaping Use Currently Using 07/07/23 13:06 Thrive Assessment: Date of Thrive Assessment Date Thrive assessed 07/06/22 07/07/23 13:06 Const General: cooperative Nutritional Appearance: well nourished Orientation/consciousness: patient oriented x3 HENMT Head: Yes normal to inspection, Yes normocephalic and Yes atraumatic Ears: TM's normal bilaterally Eyes General: appearance normal, both eyes and all related structures Alignment and Position: alignment normal and position normal Neck Neck: Yes normal visual inspection and Yes no lymphadenopathy Thyroid: Thyroid normal Resp Effort & Inspection: normal respiratory effort Auscultation: clear to auscultation bilaterally Cardio Rate: regular rate Rhythm: regular rhythm Heart sounds: S1 normal heart sound present, S2 normal heart sound present and no murmurs GI Palpation (GI): Soft to palpation and nontender Auscultation: normal bowel sounds Male General Exam: Yes normal external exam Penis: normal penis Scrotum: scrotum normal, testes descended bilaterally and no inguinal hernias Testes: no testicular mass Skin Other: small open region to left thigh without signs of infection Rashes: no rashes Neuro General: patient oriented x3, moves all extremities, no focal motor deficits and deep tendon reflexes 2+ bilaterally Romberg Test: Negative Psych Appearance: grossly normal Mental Status: mental status grossly normal Speech and movement: Normal speech and movement present Affect: normal affect Attitude: cooperative Thought process: Normal thought process present Thought content: Normal thought content present Insight: Good insight present (Psych) Judgement: Good judgement present (Psych) Assessment and Plan Assessment & Plan (1) Physical exam: Code(s): Z00.00 - Encounter for general adult medical examination without abnormal findings Plan: Labs ordered (2) B12 deficiency: Code(s): E53.8 - Deficiency of other specified B group vitamins Plan: Labs ordered (3) Tick bite: Code(s): W57.XXXA - Bitten or stung by nonvenomous insect and other nonvenomous arthropods, initial encounter Plan: Doxy sent Plan The patient agreed to the use of a medical billing service for this encounter. Scribed for RAJENDRA Silvestre by Autumn Hernandes medical billing service, on 07/07/2023 at 13:40 EST Orders: Orders Comprehensive [place]. Panel Fast Today Z00.00 - Encounter for general adult medical examination without abnormal findings Lipid Panel Today Z00.00 - Encounter for general adult medical examination without abnormal findings Tick-borne Disease Molecular Today W57.XXXA - Bitten or stung by nonvenomous insect and other nonvenomous arthropods, initial encounter Complete Blood Count Auto Diff Today Z00.00 - Encounter for general adult medical examination without abnormal findings TSH reflex Free T4 Today Z00.00 - Encounter for general adult medical exami [facility] without abnormal findings UA CC w/rflx Micro + Cult Today Z00.00 - Encounter for general adult medical examination without abnormal findings Vitamin B12 and Folate Today E53.8 - Deficiency of other specified B group vitamins Medications: New doxycycline hyclate 100 mg PO BID 28 tabs 0RF 14 days Coding Level of Care Code Est Pt Prev Care 40-64y(50527) Diagnoses Physical exam Z00.00 B12 deficiency E53.8 Tick bite W57.XXXA
[2023-07-07 13:06] VITALS: BP 122/80; PULSE 103; O2SAT 97; BMI 30.1
== END 2023-07-07 14:15 | disposition home or self-care (01) ==
LOC: HO.HMGC 13:01
PROVIDERS: PCP Nurse Practitioner Family; Visit Provider Nurse Practitioner Family
DX: Z00.00 Encounter for general adult medical examination without abnormal findings (principal); E53.8 Deficiency of other specified B group vitamins; W57.XXXA Bitten or stung by nonvenomous insect and other nonvenomous arthropods, initial encounter
CPT/HCPCS: 99396

== ENCOUNTER 2023-09-07 08:19 | Outpatient (REF) | payer OTHER, SELFPAY ==
[2023-09-07 11:30] LABS: MANUAL DIFF FLAG NO
[2023-09-07 11:43] LABS: Basophils Percent Auto 0.3 % (0-2); Eosinophils Absolute Auto 0.1 X10*3/uL (0.0-0.4); Eosinophils Percent Auto 1.7 % (0-4); Hematocrit 44.5 % (42.0-52.0); Hemoglobin 15.3 g/dl (14.0-18.0); Imm Gran Abs Auto 0.02 X10*3/uL (0.00-0.03); Imm Gran Pct Auto 0.3 % (0.0-0.4); Lymphocytes Absolute Auto 1.7 X10*3/uL (1.2-4.9); Lymphocytes Percent Auto 24.5 % (20-40); Mean Corpuscular HGB Conc 34.4 g/dl (31.0-36.0); Mean Corpuscular Hemoglobin 30.1 pg (27.0-33.0); Mean Corpuscular Volume 87.6 fL (80.0-98.0); Mean Platelet Volume 10.6 fL (9.4-12.4); Monocytes Absolute Auto 0.6 X10*3/uL (0.1-1.2); Neutrophils Absolute Auto 4.4 x10*3/uL (2.0-8.3); Neutrophils Percent Auto 64.2 % (45-73); Platelet Count 286 X10*3/uL (160-400); Red Blood Count 5.08 X10*6/uL (4.60-5.80); Red Cell Distribution Width 11.9 % (11.0-16.0); White Blood Count 6.9 X10*3/uL (4.8-10.8)
[2023-09-07 12:30] LABS: Folate 11.5 ng/mL (> or = 4.0); Vitamin B12 416 pg/mL (200-900)
[2023-09-07 14:53] LABS: Alanine Aminotransferase 17 U/L (0-40); Albumin Level 4.5 g/dL (3.5-5.0); Alkaline Phosphatase 69 U/L (39-117); Anion Gap 13 (12-20); Aspartate Amino Transferase 19 U/L (5-37); Bilirubin Total 0.5 mg/dL (0.0-1.0); Blood Urea Nitrogen 8 mg/dL (9-16); Calcium 9.5 mg/dL (8.4-10.2); Carbon Dioxide 25 mmol/L (22-29); Chloride 103 mmol/L (96-108); Cholesterol 165 mg/dL (<200); Estimated Glomerular Filt Rate > 60; Glucose Fasting 91 mg/dL (60-99); HDL Cholesterol 47 mg/dL (>40); LDL Cholesterol Calculated 107 mg/dL (<100); Sodium 137 mmol/L (135-145); Total Protein 7.7 g/dL (6.5-8.0); Triglycerides 58 mg/dL (<150)
[2023-09-07 15:12] LABS: TSH reflex Free T4 0.71 uIU/mL (0.32-4.0)
[2023-09-10 03:53] LABS: A. Phagocytphilium DNA,RT-PCR NOT DETECTED (NOT DETECTED); Babesia Microti DNA, RT-PCR NOT DETECTED (NOT DETECTED); Borrelia Miyamotoi,DNA RT-PCR NOT DETECTED (NOT DETECTED); E.Chaffeensis DNA RT-PCR NOT DETECTED (NOT DETECTED); Lyme(Borrelia ssp)DNA RT-PCR NOT DETECTED (NOT DETECTED)
== END 2023-09-07 08:20 | disposition home or self-care (01) ==
LOC: HO.HMGCLDS 08:19
PROVIDERS: PCP Nurse Practitioner Family; Visit Provider Nurse Practitioner Family
DX: Z00.00 Encounter for general adult medical examination without abnormal findings (principal); T14.8XXA Other injury of unspecified body region, initial encounter; W57.XXXA Bitten or stung by nonvenomous insect and other nonvenomous arthropods, initial encounter; E53.8 Deficiency of other specified B group vitamins; Z13.29 Encounter for screening for other suspected endocrine disorder
CPT/HCPCS: 36415; 80053; 80061; 82607; 82746; 84443; 85025; 87468; 87469; 87478; 87484; 87798

== ENCOUNTER 2024-02-28 09:13 | Outpatient (REF) | payer OTHER, SELFPAY ==
--- NOTE | ~2024-02-28 | XR_ITS ---
EXAMINATION: XR THORACOLUMBAR SPINE CLINICAL INFORMATION: Wedge compression fracture of the thoracic vertebra COMPARISON: 04/29/2020 TECHNIQUE: AP and lateral views of the thoracic spine FINDINGS: There is an old anterior wedge compression fracture of the T6 vertebral body resulting in approximately 30% anterior height loss and unchanged compared to 04/29/2020, status post augmentation with cement. No new fractures. The thoracic vertebra have normal alignment. No suspicious lytic or osteoblastic lesion. XR/XR thoracic spine 2V IMPRESSION: There is an old T6 vertebral body compression fracture, status post kyphoplasty, unchanged compared to 04/29/2020.
== END 2024-02-28 09:14 | disposition home or self-care (01) ==
LOC: HO.HMGCX 09:13
PROVIDERS: PCP Nurse Practitioner Family; Visit Provider Nurse Practitioner Family
DX: S22.000D Wedge compression fracture of unspecified thoracic vertebra, subsequent encounter for fracture with routine healing (principal)
CPT/HCPCS: 72070

== ENCOUNTER 2024-02-28 09:46 | Outpatient (AMB) | payer OTHER, SELFPAY ==
--- NOTE | 2024-02-28 07:38 | MHC.PC.OV ---
Intake Visit Reasons: Discuss back pain and options-Android Allergies shellfish derived [SHELLFISH DERIVED] Allergy (Severe, Verified 07/07/23 13:43) ANAPHYLAXIS ragweed pollen Adverse Reaction (Mild, Verified 07/07/23 13:43) Unknown cats Allergy (Intermediate, Uncoded 07/07/23 13:43) sneezing, coughing itchy eyes Tobacco use date assessed: 02/23/23 Dental Screening Dental Screen Date: 07/07/23 HPI Discuss back pain and options-Android HPI Details Pt c/o thoracic back pain. Had kyphoplasty (2019) in the past for a T6 compression Fx. He reports ongoing pain since this procedure. Especially after bending over for more than 30 seconds. 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 He reports damp weather and cold weather makes the pain worse, thinking about changing his job and moving to a warm environment. Will order XR to check stability of T6. Denies fever, chills, and dizziness. [facility] Medical History Ocular migraine History of degenerative disc disease TBI (traumatic brain injury) Anxiety and depression Surgical History History of hip replacement Status post reconstruction of ligament of knee joint Family History Maternal Uncle Substance use disorder Maternal Grandmother Mental health disorder Mother Brain aneurysm Lacunar stroke Sister Brain aneurysm Social History Housing: Apartment Alcohol intake: former Patient Tobacco Use Status: Never used Tobacco e-Cigarette/Vaping Use: Currently Using Second Hand Smoke Exposure: Yes Current occupational status: employed Current occupational exposures/hazards: Yes Cognitive needs: No Hearing needs: No Vision needs: No Questionnaire Thrive Questionnaire Date Thrive assessed: 07/06/22 BRENDA-7 AMB Questionnaire BRENDA-7 Date BRENDA - 7 assessed: 07/06/22 Source: Developed by Drs. Fady Brown, Perri Sommer, Magdi Robles and colleagues, with an educational kathleen from [email or web address]. Review of Systems Const Reports as per HPI Physical exam (Primary Care) Tobacco/Smoking Status: Tobacco use Status Tobacco use date assessed 02/23/23 02/28/24 07:39 Patient Tobacco Use Status Never used Tobacco 02/28/24 07:39 e-Cigarette/Vaping Use Currently Using 02/28/24 07:39 Thrive Assessment: Date of Thrive Assessment Date Thrive assessed 07/06/22 02/28/24 07:39 Const General: cooperative Orientation/consciousness: patient oriented x3 Neuro General: patient oriented x3 Psych Appearance: grossly normal Mental Status: mental status grossly normal Speech and movement: Clear speech present Affect: normal affect Attitude: cooperative Thought process: Normal thought process present Thought content: Normal thought content present Insight: Good insight present (Psych) Judgement: Good judgement present (Psych) Telehealth Telehealth Telehealth Platform: [address] Location of provider rendering services: practice address Location of patient: address on file Patient Identification confirmed using: Name, : Yes Telehealth method: video Patient verbally consented to treatment: Yes Patient verbally consented to billing insurance company: Yes Patient informed of any privacy concerns related to visit: Yes Minutes spent on Phone/Video with Pt.: 10 Assessment and Plan Assessment & Plan (1) Thoracic compression fracture: Code(s): S22.000A - Wedge compression fracture of unspecified thoracic vertebra, initial encounter for closed fracture Plan: XR ordered Plan The patient agreed to the use of a ophthalmic medical technician for this encounter. Scribed for RAJENDRA Silvestre by Autumn Hernandes ophthalmic medical technician, on 02/28/2024 at 07:35 EST. Orders: Orders XR thoracic spine 2V Today S22.000A - Wedge compression fracture of unspecified thoracic vertebra, initial encounter for closed fracture Coding Level of Care Code Tele Est Pt Level 3 (55003) Diagnoses Thoracic compression fracture S22.000A
== END 2024-02-28 11:01 | disposition home or self-care (01) ==
LOC: HO.HMGC 09:46
PROVIDERS: PCP Nurse Practitioner Family; Visit Provider Nurse Practitioner Family
DX: M54.6 Pain in thoracic spine (principal)
CPT/HCPCS: 99213

== ENCOUNTER 2024-10-08 14:49 | Outpatient (AMB) | payer OTHER, SELFPAY ==
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
[2024-10-08 14:53] VITALS: BP 122/80; PULSE 73; O2SAT 97; BMI 27.9
== END 2024-10-08 15:39 | disposition home or self-care (01) ==
PROVIDERS: PCP Nurse Practitioner Family; Visit Provider Nurse Practitioner Family
DX: Z00.00 Encounter for general adult medical examination without abnormal findings (principal); E53.8 Deficiency of other specified B group vitamins; Z87.81 Personal history of (healed) traumatic fracture

== ENCOUNTER → 2024-10-08 14:49 | Outpatient (BNVA) | payer OTHER, SELFPAY | PROVIDERS: PCP Nurse Practitioner Family; Visit Provider Nurse Practitioner Family | DX: Z00.00 Encounter for general adult medical examination without abnormal findings (principal); E53.8 Deficiency of other specified B group vitamins; Z87.81 Personal history of (healed) traumatic fracture | CPT/HCPCS: 96127; 99396 ==

== ENCOUNTER 2024-11-09 09:31 | Outpatient (REF) | payer OTHER, SELFPAY ==
--- NOTE | ~2024-11-09 | MM_ITS ---
EXAMINATION: DXA BONE DENSITY AXIAL HISTORY: History of prior fracture. TECHNIQUE: e[employer]ureau Dual energy absorptiometry (DEXA) of the lumbar spine, total left hip, and femoral neck was performed. COMPARISON: There are no prior studies for comparison. FINDINGS: The bone mineral density of the lumbar spine is 1.036 with a T-score of -1.5, and a Z-score of -1.7. The bone mineral density of the left total hip is 0.998 with a T-score of -0.7, and a Z-score of -0.6. The bone mineral density of the left femoral neck is 1.031 with a T-score of -0.3, and a Z-score of 0.0. FRACTURE RISK: The FRAX index suggests a risk of major osteoporotic fracture of 4.4%, and of hip fracture 0.2%. MM/XR DEXA axial skeleton IMPRESSION: Based on bone mineral density, and according to World Health Organization (WHO) criteria, the diagnosis is consistent with osteopenia. All bone density values are in grams per centimeter squared (g/cm2). Statistically, 68% of repeat scans fall within 1 SD (+/- 0.010 g/cm2 for AP spine L1-L4) and 1 SD (+/- 0.012 g/cm2 for femur total) FRAX is a trademark of the [employer]'s [place] for Metabolic Bone Disease, a World Health Organization (WHO) Collaborating Center. Electronically signed by: Fady Kothari MD 11/12/2024 08:27 AM [facility]
== END 2024-11-09 09:32 | disposition home or self-care (01) ==
LOC: HO.MAMMO 09:31
PROVIDERS: PCP Nurse Practitioner Family; Visit Provider Nurse Practitioner Family
DX: Z13.820 Encounter for screening for osteoporosis (principal); Z87.81 Personal history of (healed) traumatic fracture; M85.852 Other specified disorders of bone density and structure, left thigh
CPT/HCPCS: 77080

== ENCOUNTER → 2024-11-09 10:00 | Outpatient (BNV) | payer OTHER, SELFPAY | PROVIDERS: PCP Nurse Practitioner Family; Visit Provider Radiology Diagnostic Radiology | DX: E28.39 Other primary ovarian failure (principal) | CPT/HCPCS: 77080 ==

== ENCOUNTER 2024-11-16 12:58 | Outpatient (AMB) | payer OTHER, SELFPAY ==
[2024-11-16 13:00] VITALS: BP 122/64; PULSE 112; O2SAT 93; BMI 25.9
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
== END 2024-11-16 13:36 | disposition home or self-care (01) ==
PROVIDERS: PCP Nurse Practitioner Family; Visit Provider Nurse Practitioner Family
DX: R91.8 Other nonspecific abnormal finding of lung field (principal); R06.09 Other forms of dyspnea
CPT/HCPCS: 99204

== ENCOUNTER → 2024-11-16 12:58 | Outpatient (BNVA) | payer OTHER, SELFPAY | PROVIDERS: PCP Nurse Practitioner Family; Visit Provider Nurse Practitioner Family | DX: R91.8 Other nonspecific abnormal finding of lung field (principal); R06.09 Other forms of dyspnea | CPT/HCPCS: 99202 ==

== ENCOUNTER 2024-12-27 08:59 | Outpatient (REF) | payer OTHER, SELFPAY ==
--- NOTE | 2024-12-27 09:03 | PFT_ITS ---
Flows: FEV1: 112 % of predicted at 4.68 L FVC: 120 % of predicted at 6.32 L FEV1/FVC: 74 % Bronchodilator response: Absent Volumes: Total lung capacity: 107 % of predicted at 7.98 L Residual volume: 108 % of predicted at 1.95 L Slow vital capacity: 107 % of predicted at 6.03 L Expiratory reserve volume: 100 % of predicted at 1.69 L Diffusion capacity: Normal Impression: No obstructive or restrictive ventilatory defects. No bronchodilator response. Normal pulmonary function test. MTDD
[2024-12-27 09:41] VITALS: PULSE 76; O2SAT 98
== END 2024-12-27 09:00 | disposition home or self-care (01) ==
LOC: HO.RESP 08:59
PROVIDERS: PCP Nurse Practitioner Family; Visit Provider Nurse Practitioner Family
DX: R06.09 Other forms of dyspnea (principal)
CPT/HCPCS: 94010; 94640; 94727; 94729

== ENCOUNTER → 2024-12-27 09:03 | Outpatient (BNV) | payer OTHER, SELFPAY | PROVIDERS: PCP Nurse Practitioner Family; Visit Provider Internal Medicine Pulmonary Disease | DX: R06.09 Other forms of dyspnea (principal) | CPT/HCPCS: 94060; 94727; 94729 ==

== ENCOUNTER 2025-01-29 15:15 | Outpatient (AMB) | payer OTHER, SELFPAY ==
[2025-01-29 15:17] VITALS: BP 110/70; PULSE 70; O2SAT 98; BMI 25.3
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
== END 2025-01-29 15:53 | disposition home or self-care (01) ==
LOC: HO.HPSW 15:15
PROVIDERS: PCP Nurse Practitioner Family; Visit Provider Nurse Practitioner Family
DX: J45.909 Unspecified asthma, uncomplicated (principal); R91.8 Other nonspecific abnormal finding of lung field; R06.09 Other forms of dyspnea
CPT/HCPCS: 99214

== ENCOUNTER → 2025-01-29 15:15 | Outpatient (BNVA) | payer OTHER, SELFPAY | PROVIDERS: PCP Nurse Practitioner Family; Visit Provider Nurse Practitioner Family | DX: J45.909 Unspecified asthma, uncomplicated (principal); R91.8 Other nonspecific abnormal finding of lung field; R06.09 Other forms of dyspnea | CPT/HCPCS: 99212 ==

== ENCOUNTER 2025-02-04 14:21 | Outpatient (AMB) | payer OTHER, SELFPAY ==
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
[2025-02-04 14:32] VITALS: BP 120/78; PULSE 71; O2SAT 96; BMI 25.9
== END 2025-02-04 15:28 | disposition home or self-care (01) ==
LOC: HO.HSMS 14:22
PROVIDERS: PCP Nurse Practitioner Family; Visit Provider Nurse Practitioner Family
DX: F90.9 Attention-deficit hyperactivity disorder, unspecified type (principal); S06.9X9S Unspecified intracranial injury with loss of consciousness of unspecified duration, sequela; F09 Unspecified mental disorder due to known physiological condition; H53.9 Unspecified visual disturbance
CPT/HCPCS: 99214

== ENCOUNTER → 2025-02-04 14:21 | Outpatient (BNVA) | payer OTHER, SELFPAY | PROVIDERS: PCP Nurse Practitioner Family; Visit Provider Nurse Practitioner Family | DX: S06.9X9A Unspecified intracranial injury with loss of consciousness of unspecified duration, initial encounter (principal); F98.8 Other specified behavioral and emotional disorders with onset usually occurring in childhood and adolescence; F09 Unspecified mental disorder due to known physiological condition; H53.9 Unspecified visual disturbance; X58.XXXA Exposure to other specified factors, initial encounter; Y93.9 Activity, unspecified; Y92.9 Unspecified place or not applicable; Y99.9 Unspecified external cause status | CPT/HCPCS: 99212 ==

== ENCOUNTER 2025-02-07 06:56 | Outpatient (AMB) | payer OTHER, SELFPAY ==
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
== END 2025-02-07 07:38 | disposition home or self-care (01) ==
LOC: HO.HMCC 06:57
PROVIDERS: PCP Nurse Practitioner Family; Visit Provider Nurse Practitioner Family
DX: S22.20XA Unspecified fracture of sternum, initial encounter for closed fracture (principal); V89.2XXA Person injured in unspecified motor-vehicle accident, traffic, initial encounter; Z04.3 Encounter for examination and observation following other accident

== ENCOUNTER → 2025-02-07 06:56 | Outpatient (BNVA) | payer OTHER, SELFPAY | PROVIDERS: PCP Nurse Practitioner Family; Visit Provider Nurse Practitioner Family | DX: Z13.89 Encounter for screening for other disorder (principal) ==

== ENCOUNTER 2025-03-21 16:34 | Outpatient (REF) | payer OTHER, SELFPAY ==
--- NOTE | ~2025-03-21 | CT_ITS ---
EXAMINATION: CT CHEST WITHOUT CONTRAST CLINICAL INFORMATION: R93.89 - Abnormal findings on diagnostic imaging of other specified body... COMPARISON: November 09, 2024 DLP: 168 mGY*cm TECHNIQUE: Multidetector volumetric CT imaging of the chest was done. Axial MIP volume rendering provided. Sagittal and coronal reformatted images were obtained. This CT examination was performed using dose optimization techniques as appropriate, variously including the following: *Automated exposure control *Adjustment of mA and/or kV according to patient size (this includes techniques or standardized protocols for targeted exams where dose is matched to indication/reason for exam; i.e. extremities or head) *Use of iterative reconstruction technique FINDINGS: LUNGS: Again seen is a multifocal solid nodular mass in the left lower lobe, posterior segment, located posterior medially. There is a focal area of calcification measuring 6 x 12 mm (CC by AP. It extends between the posterior infrahilar region to the posterior medial pleura. Posterior to the focal calcification, there is a complex nodule. Medially, the density is groundglass, previously it appeared more solid. Laterally, the nodule has a solid appearance and measures 14 x 18 mm, previously 11 x 16 mm. Subjectively, may have increased. MEDIASTINUM: Shotty mediastinal nodes are again noted. CORONARY ARTERY CALCIFICATION: None visualized on this study. PLEURA: There is no pleural effusion. No pleural mass or thickening. AXILLA: No lymphadenopathy. UPPER ABDOMEN: Unremarkable. OSSEOUS STRUCTURES: T6 kyphoplasty is present and unchanged. CT/CT chest wo IV con IMPRESSION: Complex nodular mass in the posterior segment left lower lobe demonstrates interval change. There is a dense calcified component. However, there are also groundglass and solid nodular components. The solid nodular component posteriorly appears subjectively and objectively increased. However direct comparison is difficult due to slice selection differences. Although changes may all be related to chronic granulomatous disease or remote trauma, neoplasm is not ruled out. Fleischner guidelines were followed. Electronically signed by: Saleem Duran MD 03/21/2025 05:33 PM EDT
== END 2025-03-21 16:35 | disposition home or self-care (01) ==
LOC: HO.CT 16:34
PROVIDERS: PCP Nurse Practitioner Family; Visit Provider Nurse Practitioner Family
DX: R93.89 Abnormal findings on diagnostic imaging of other specified body structures (principal); R91.8 Other nonspecific abnormal finding of lung field
CPT/HCPCS: 71250

== ENCOUNTER → 2025-03-21 16:35 | Outpatient (BNV) | payer OTHER, SELFPAY | PROVIDERS: PCP Nurse Practitioner Family; Visit Provider Radiology Diagnostic Radiology | DX: R91.1 Solitary pulmonary nodule (principal) | CPT/HCPCS: 71250 ==

== ENCOUNTER 2025-08-27 06:42 | Outpatient (AMB) | payer OTHER, SELFPAY ==
--- OUTSIDE RECORDS SUMMARY | 2025-08-27 06:46 | XMS_ITS | Encounter Summary ---
Author Organization [facility] Address [address] [place] [phone] Phone Care Team Providers Care Appointment Specialist Name Role Phone Ciro Reynoso BOAT DOCK OPERATOR Primary Care Provider + Encounter Details Date Type Department Care Team (Late st Contact Info) Description 01/20/2025 Procedure Pass [facility], Ct Scan - [address] [address] Social History Tobacco Use Types Packs/Day Years Used Date Smoking Tobacco: Never Smokeless Tobacco: Never Alcohol Use Standard Drinks/Week Comments Never 0 (1 standard drink = 0.6 oz pur e alcohol) Education Answer Date Recorded Are you interested in more education? Not on zainab e 01/15/2023 Are you concerned about learning? Not on file 01/15/2023 No 01/15/2023 No 01/15/2023 Digital Access Answer Date Recorded No 02/15/2023 No 02/15/2023 Reliable internet access at home? Not on file 02/15/2023 Device with a working camera? Not on file Intimate Partner Violence Answer Date R ecorded Are you denied basic needs s uch as food, clothing, or medical care? No 01/20/2025 In the past 12 months have y ou been in a relationship with a person who hurts, threatens, or tries to control you? No 01/20/2025 Are you denied basic needs s uch as food, clothing, or medical care? No 01/20/2025 In the past 12 months have y ou been in a relationship with a person who hurts, threatens, or tries to control you? No 01/20/2025 Sex and Gender Information Value Date Recorded Sex Assigned at Male 07/27/2024 3:15 PM EST Legal Sex Male 7:22 AM EST Gender Identity Male 07/27/2024 3:15 PM EST Sexual Orientation Straight 07/27/2024 3: 15 PM EST documented as of this encounter Functional Status * Calculated C-SSRS Risk Score (Lifetime/Recent) Answer Date of Assessment Author No Risk Indicated 01/20/2025 11:25 AM EDT Kelsi Jin RN * [place] Suicide Severity Rating Scale (Screener/Recent Self-Report) Question Answer Date of Assessment Author 1. Wish to be (Past 1 Month) No 01/20/2025 11:25 AM SHEKHART Kelsi Jin RN 2. Non-Specific Active Suici cornell Thoughts (Past 1 Month) No 01/20/2025 11:25 AM EDT Suzanne Jin RN 6. Suicidal Behavior (Lifetime) No 11:25 AM SHEKHART Kelsi Jin RN documented as of this encounter Plan of Treatment Not on file documented as of this encounter Visit Diagnoses Not on filedocumented in this encounter Care Teams Appointment Specialist Relationship Specialty Start Date End Date Ciro Reynoso NP [facility] [place] [address] PCP - General Nurse Practitioner 10/22/22 documented as of this encounter Additional Source Comments The information contained in this document represents components of the legal health record. It is not the complete legal health record.[facility]
--- OUTSIDE RECORDS SUMMARY | 2025-08-27 06:46 | XMS_ITS | Encounter Summary ---
Author Organization [facility] Address [address] [place] [id number] Phone Care Team Providers Care Warp Tester Name Role Phone Ciro Reynoso DEDICATED LOCAL TRUCK DRIVER Primary Care Provider + Encounter Details Date Type Department Care Team (Late st Contact Info) Description 01/20/2025 Procedure Pass [facility], Ct Scan - [address] [address] Social History Tobacco Use Types Packs/Day Years [...] 11:25 AM EDT Kelsi Jin RN * [place] Suicide Severity Rating Scale (Screener/Recent Self-Report) Question [...] on filedocumented in this encounter Care Teams Warp Tester Relationship Specialty Start Date End Date Ciro Reynoso NP [facility] [place] [address] PCP - General Nurse Practitioner 10/22/22 documented as of this encounter Additional Source Comments The information contained in this document represents components of the legal health record. It is not the complete legal health record.[facility]
--- OUTSIDE RECORDS SUMMARY | 2025-08-27 06:46 | XMS_ITS | Encounter Summary ---
Author Organization [facility] Address [address] [place] [address] Phone Care Team Providers Care Rubber Tire And Tubes Supervisor Name Role Phone Ciro Reynoso STACK SUPERVISOR Primary Care Provider + Encounter Details Date Type Department Care Team (Late st Contact Info) Description 08/22/2024 Procedure Pass [facility], Ct Scan - [address] [address] Social History Tobacco Use Types Packs/Day Years [...] as food, clothing, or medical care? No 08/09/2024 In the past 12 months have y ou been in a relationship with a person who hurts, threatens, or tries to control you? No 08/09/2024 Are you denied basic needs s uch as food, clothing, or medical care? No 08/09/2024 In the past 12 months have y ou been in a relationship with a person who hurts, threatens, or tries to control you? No 08/09/2024 Sex and Gender Information Value Date Recorded Sex Assigned at Male 07/27/2024 3:15 PM EST Legal Sex Male 7:22 AM EST Gender Identity Male 07/27/2024 3:15 PM EST Sexual Orientation Straight 07/27/2024 3: 15 PM EST documented as of this encounter Plan of Treatment Not on file documented as of this encounter Visit Diagnoses Not on filedocumented in this encounter Care Teams Rubber Tire And Tubes Supervisor Relationship Specialty Start Date End Date Ciro Reynoso NP [facility] [place] [address] PCP - General Nurse Practitioner 10/22/22 documented as of this encounter Additional Source Comments The information contained in this document represents components of the legal health record. It is not the complete legal health record.[facility]
--- OUTSIDE RECORDS SUMMARY | 2025-08-27 06:46 | XMS_ITS | Encounter Summary ---
Author Organization [facility] Address [address] [facility] [address] [place] [phone] Phone Care Team Providers Care Vehicle Mechanic Name Role Phone Ciro Reynoso FRAME NAILER Primary Care Provider + Encounter Details Date Type Department Care Team (Late st Contact Info) Description 2022 Procedure Pass [facility], Ct Scan - [address] [address] Social History Tobacco Use Types Packs/Day Years Used Date Smoking Tobacco: Never Assessed Sex and Gender Information Value Date Recorded Sex Assigned at Male 07/27/2024 3:15 PM EST Legal Sex Male 7:22 AM EST Gender Identity Male 07/27/2024 3:15 PM EST Sexual Orientation Straight 07/27/2024 3: 15 PM EST documented as of this encounter Functional Status * Calculated C-SSRS Risk Score (Lifetime/Recent) Answer Date of Assessment Author No Risk Indicated 2022 7:44 AM Alethea Healy RN * [place] Suicide Severity Rating Scale (Screener/Recent Self-Report) Question Answer Date of Assessment Author 1. Wish to be (Past 1 Month) No 023 7:44 AM Alethea Healy RN 2. Non-Specific Active Suici cornell Thoughts (Past 1 Month) No 2022 7:44 AM Tameka Healy RN 6. Suicidal Behavior (Lifetime) No 7:44 AM Alethea Healy RN documented as of this encounter Plan of Treatment Not on file documented as of this encounter Visit Diagnoses Not on filedocumented in this encounter Care Teams Vehicle Mechanic Relationship Specialty Start Date End Date Ciro Reynoso NP [facility] [place] [address] PCP - General Nurse Practitioner 10/22/22 documented as of this encounter Additional Source Comments The information contained in this document represents components of the legal health record. It is not the complete legal health record.[facility]
--- OUTSIDE RECORDS SUMMARY | 2025-08-27 06:46 | XMS_ITS | Encounter Summary ---
Author Organization [facility] Address [address] [facility] [address] [place] [phone] Phone Care Team Providers Care Lens Grinder Name Role Phone Ciro Reynoso EXPERIMENTAL ASSEMBLER Primary Care Provider + Encounter Details Date Type Department Care Team (Late st Contact Info) Description 2022 Procedure Pass [facility], Ct Scan - [address] [address] Social History Tobacco Use Types Packs/Day Years [...] 2022 7:44 AM Alethea Healy RN * [place] Suicide Severity Rating Scale (Screener/Recent Self-Report) Question [...] on filedocumented in this encounter Care Teams Lens Grinder Relationship Specialty Start Date End Date Ciro Reynoso NP [facility] [place] [address] PCP - General Nurse Practitioner 10/22/22 documented as of this encounter Additional Source Comments The information contained in this document represents components of the legal health record. It is not the complete legal health record.[facility]
--- OUTSIDE RECORDS SUMMARY | 2025-08-27 06:46 | XMS_ITS | Clinical Summary ---
Author Organization [facility] 299 [facility] Address [address] [place] [address] Phone Care Team Providers Care Manager Cath Lab Name Role Phone Ciro Reynoso NP Primary Care Provider Allergies Active Allergy Reactions Criticality Noted Date Comments Cat Dander 06/17/2025 Ragweed Pollen 06/17/2025 Shellfish Derived Anaphylaxis High 06/17/2025 Medications lidocaine (LIDODERM) 5 % patch PLACE 1 PATCH ONTO THE SKIN DAILY FOR 5 DAYS. REMOVE & DISCARD PATCH WITHIN 12 HOURS OR DIRECTED 5 Active ibuprofen (ADVIL,MOTRIN) 600 mg tablet Take 1 tablet (600 mg total) by mouth every 6 (six) hours if needed. for pain 5 Active gabapentin (NEURONTIN) 100 mg capsule Take 1 capsule (100 mg total) by mouth. 5 Active Arnuity Ellipta 100 mcg/actuation blister with device inhaler Inhale 1 puff by mouth 1 (one) time each day. 5 Active DULoxetine (CYMBALTA) [address] capsule TAKE 2 CAPSULES BY MOUTH DAILY AFTER BREAKFAST 5 Active Adderall XR 15 mg 24 hr capsule take 1 capsule by mouth every morning for 30 days 5 Active Ventolin HFA 90 mcg/actuation inhaler INHALE 2 PUFFS BY MOUTH EVERY 4 TO 6 HOURS NEEDED FOR SHORTNESS OF BREATH/WHEEZE 5 Active Vraylar 1.5 mg capsule Take 1 capsule (1.5 mg total) by mouth 1 (one) time each day. Active Active Problems Problem Noted Date Diagnosed Date Pulmonary nodules 06/17/2025 Encounters Date Type Department Care Team Description 07/11/2025 1:30 PM EDT Office Visit Thoracic Surgery [facility] [address] [phone] Marilyn Chavira MD Pulmonary nodules (Primary Dx) 07/04/2025 8:00 AM EDT Anesthesia Event [facility] Main OR [address] [place] [address] Jeri Malloy DO Chang, Ling, CRNA 07/04/2025 7:30 AM EDT - 07/04/2025 9:30 AM EDT Surgery [facility] Main OR [address] [place] [phone] Marilyn Chavira MD Navigation bronchoscopy/EBUS with biopsies [15409 (CPT ) +5 more] 07/04/2025 6:31 AM EDT - 07/04/2025 10:49 AM EDT Hospital Encounter [facility] Main OR [address] [place] [phone] Marilyn Chavira MD Pulmonary nodules Discharge Disposition: Home or Self Care 06/27/2025 12:04 PM EDT - 06/27/2025 11:59 PM EDT Hospital Encounter [facility] CT Scan [address] [place] [phone] Pulmonary nodules Discharge Disposition: Home or Self Care 06/19/2025 Telephone Thoracic Surgery - [place] [address] [phone] Angie Mirza MA 06/17/2025 3:30 PM EDT Consult Thoracic Surgery [facility] [address] [phone] Marilyn Chavira MD Pulmonary nodules (Primary Dx) from Last 3 Months Surgical History Surgery Date Site/Laterality Comments ROTATOR CUFF REPAIR OTHER SURGICAL HISTORY Hip Replacement KNEE LIGAMENT RECONSTRUCTION OTHER SURGICAL HISTORY ankle sx JOINT REPLACEMENT KYPHOSIS SURGERY TOTAL SHOULDER ARTHROPLASTY ORIF TIBIA FRACTURE BRONCHOSCOPY 07/04/2025 Justin Bronch EBUS Medical History Medical History Date Comments Ocular migraine History of degenerative disc disease TBI (traumatic brain injury) (CMS/HCC V24, CMS/H CC V28) Anxiety and depression Shortness of breath Osteopenia Family History Medical History Relation Name Comments mental health disorder Maternal Grandmother Brain Aneurysm Mother lacunar stroke Mother Brain Aneurysm Sister Heart murmur Neg Hx Relation Name Status Comments Maternal Grandmother Mother Sister Social History Tobacco Use Types Packs/Day Years Used Date Smoking Tobacco: Never Smokeless Tobacco: Never Tobacco Cessation:Counseling Given: Not Answered Alcohol Use Standard Drinks/Week Comments Not Currently 0 (1 standard drink = 0.6 oz pur e alcohol) Interpersonal Safety Answer Date Record ed Physical Abuse Unrecognized value 07/04/2025 Verbal Abuse Unrecognized value 07/04/2025 Sex and Gender Information Value Date Recorded Sex Assigned at Not on file Legal Sex Male 11:06 PM EST Gender Identity Not on file Sexual Orientation Not on file Last Filed Vital Signs Vital Sign Reading Time Taken Comments Blood Pressure 155/88 07/11/2025 1:49 PM EDT Pulse 105 07/11/2025 1:49 PM EDT Temperature 36.6 C (97.9 F) 07/11/2025 1:49 PM EDT Respiratory Rate 18 07/11/2025 1:49 PM EDT Oxygen Saturation 98% 07/11/2025 1:49 PM EDT Inhaled Oxygen Concentration - - Weight 83.7 kg (184 lb 8 oz) 07/11/2025 1:49 PM EDT Height 182.9 cm (6') 07/11/2025 1:49 PM EDT Body Mass Index 25.02 07/11/2025 1:49 PM EDT Plan of Treatment Health Maintenance Due Date Last Done Comments Colorectal Cancer Screening: Colonoscopy 1978 DTaP,Tdap,and Td Vaccines (1 - Tdap) 1997 Hepatitis B Vaccines (1 of 3 - 19+ 3-dose series) 1997 Cholesterol Screening (Lipid Panel) 08/22/2022 HIV Screening 08/22/2022 Hepatitis C Screening 08/22/2022 Social Influencers of Health Screening 08/22/2022 Depression Screening 09/19/2024 COVID-19 Vaccine ( - 2025-2 6 season) 2025 Influenza Vaccine (#1) 2025 RSV Immunization Adult Patie nts (1 - 1-dose 75+ series) 2053 HIB Vaccines Aged Out No longer eligi ble based on patient's age to complete this topic HPV Vaccines Aged Out No longer eligi ble based on patient's age to complete this topic Hepatitis A Vaccines Aged Out No long er eligible based on patient's age to complete this topic IPV Vaccines Aged Out No longer eligi ble based on patient's age to complete this topic MMR Vaccines Aged Out No longer eligi ble based on patient's age to complete this topic Meningococcal ACWY Vaccine Aged Out N o longer eligible based on patient's age to complete this topic Meningococcal B Vaccine Aged Out No l onger eligible based on patient's age to complete this topic Pneumococcal Vaccine: Pediat rics (0 to 5 Years) and At-Risk Patients (6 to 49 Years) Aged Out No longer eligible b ased on patient's age to complete this topic RSV Immunization Patients Un maximus 20 months Aged Out No longer eligible b ased on patient's age to complete this topic Varicella Vaccines Aged Out No longer eligible based on patient's age to complete this topic Procedures Procedure Name Priority Date/Time Associated Diagnosis Comments XR CHEST 1 VIEW STAT 07/04/2025 10:14 AM EDT OXYGEN THERAPY, ADULT Routine 07/04/2025 9:24 AM EDT XR CHEST 1 VIEW Routine 07/04/2025 8:57 AM EDT ..CONCENTRATION Routine 07/04/2025 8:52 AM EDT Pulmonary nodules ACID FAST BACILLI STAIN Routine 07/04/2025 8:52 AM EDT Pulmonary nodules CULTURE BRONCHIAL WITH GRAM STAIN Routine 07/04/2025 8:52 AM EDT Pulmonary nodules CULTURE, AFB AND SMEAR WITH REFLEX TO IDENTIFICATION AND SUSCEPTIBILITY Routine 07/04/2025 8:52 AM EDT Pulmonary nodules CULTURE FUNGAL, OTHER Routine 07/04/2025 8:52 AM EDT Pulmonary nodules TISSUE EXAM Routine 07/04/2025 8:47 AM EDT Pulmonary nodules NON-GYNECOLOGIC CYTOLOGY Routine 07/04/2025 8:39 AM EDT Pulmonary nodules TH AN ENDOTRACHEAL(NO CHARGE) Routine 07/04/2025 8:17 AM EDT VT CORE NDL BX LNG/MED PERQ 07/04/2025 8:00 AM EDT Pulmonary nodules Case Notes C-ARM VT BRONCHOSCOPY INCL FLUORO GUIDANCE W BRONCHIAL/ENDOBRONCHI AL BX SGL/MULT 07/04/2025 8:00 AM EDT Pulmonary nodules Case Notes C-ARM VT BRONCHOSCOPY RIGID/FLEXIBLE W/TRANSBRONCHIAL LUNG BIOPSY(S) SINGLE LOBE 07/04/2025 8:00 AM EDT Pulmonary nodules Case Notes C-ARM VT BRONCHOSCOPY RIGID/FLEXIBLE COMPUTER ASSISTED IMAGE GUIDED NAVIGATION 07/04/2025 8:00 AM EDT Pulmonary nodules Case Notes C-ARM VT BRONCHOSCOPY INCL FLUOROSCOPIC GUID W EBUS DURING PERIPHERAL LESION 07/04/2025 8:00 AM EDT Pulmonary nodules Case Notes C-ARM VT BRONCHOSCOPY INCL FLUROSCOPIC GUIDANCE W PLCMNT FIDUCIAL MARKER SGL/MULT 07/04/2025 8:00 AM EDT Pulmonary nodules Case Notes C-ARM CT CHEST WO CONTRAST Routine 06/27/2025 1:11 PM EDT Pulmonary nodules PROCEDURAL ECG Routine 06/27/2025 12:39 PM EDT Pulmonary nodules CBC WITH AUTO DIFFERENTIAL Routine 06/27/2025 12:31 PM EDT Pulmonary nodules BASIC METABOLIC PANEL Routine 06/27/2025 12:31 PM EDT Pulmonary nodules CBC AND DIFFERENTIAL Routine 06/27/2025 12:31 PM EDT Pulmonary nodules PROTHROMBIN TIME WITH INR Routine 06/27/2025 12:31 PM EDT Pulmonary nodules ACTIVATED PARTIAL THROMBOPLASTIN TIME Routine 06/27/2025 12:31 PM EDT Pulmonary nodules TYPE AND SCREEN Routine 06/27/2025 12:31 PM EDT Pulmonary nodules from Last 3 Months Results * XR Chest 1 View (07/04/2025 10:14 AM EDT) Only the most recent of2 resultswithin the time period is included. Anatomical Region Laterality Modality Body Radiographic María ging 07/04/2025 10:1 8 AM EDT Impressions 07/04/2025 10:21 AM EDT No definite pneumothorax following lung biopsy. -------- FINAL REPORT -------- Dictated By: Yohannes Barnett Dictated Date: 07/04/2025 10:18 ET Assigned Physician: Yohannes Barnett Reviewed and Electronically Signed By: Yohannes Barnett Signed Date: 07/04/2025 10:21 ET Workstation ID: [id number] Transcribed By: Self Edit Transcribed Date: 07/04/2025 10:18 ET Narrative 07/04/2025 10:21 AM EDT EXAMINATION: CHEST CLINICAL INFORMATION: Post lung biopsy COMPARISON: No recent chest x-ray for comparison TECHNIQUE: Portable frontal sitting view of the chest FINDINGS: Devices overlie the patient. The cardiac size is within normal limits. There is no vascular congestion or edema. Previous CT has demonstrated calcified nodules. There is no large mass. There is no definite pneumothorax. There are some rib deformities. There is likely some opaque cement in the mid thoracic spine. Procedure Note Yohannes Barnett MD - 07/04/2025 EXAMINATION: CHEST CLINICAL INFORMATION: Post lung biopsy COMPARISON: No recent chest x-ray for comparison TECHNIQUE: Portable frontal sitting view of the chest FINDINGS: Devices overlie the patient. The cardiac size is within normal limits.There is no vascular congestion or edema. Previous CT has demonstrated calcified nodules. There is no large mass. There is no definite pneumothorax. There are some rib deformities. There is likely some opaque cement in the mid thoracic spine. IMPRESSION: No definite pneumothorax following lung biopsy. -------- FINAL REPORT -------- Dictated By: Yohannes Barnett Dictated Date: 07/04/2025 10:18 ET Assigned Physician: Yohannes Barnett Reviewed and Electronically Signed By: Yohannes Barnett Signed Date: 07/04/2025 10:21 ET Workstation ID: [id number] Transcribed By: Self Edit Transcribed Date: 07/04/2025 10:18 ET us Marilyn Chavira MD IMG XR PROCEDURES Final Result * (ABNORMAL) Culture bronchial with gram stain (07/04/2025 8:52 AM EDT) Bronchial Culture Very Light Growth Haemophilus parainfluenzae(A) 07/07/2025 1:10 PM EDT [facility] Comment: The organism value for this result has been updated. These results have been appended to the previously preliminary verified report. Beta Lactamase Negative 07/07/2025 1:10 PM EDT [facility] Gram Stain Result Few Polymorphonuclear leukocytes 07/07/2025 1:10 PM EDT [facility] Gram Stain Result No epithelial cells seen 07/07/2025 1:10 PM EDT [facility] Gram Stain Result No organisms seen 07/07/2025 1:10 PM EDT [facility] Wash Structure of lower lobe of left lung / Unknown 07/04/2025 8:52 AM EDT 07/04/2025 9:37 AM EDT us Marilyn Chavira MD LAB MICROBIOLOGY - GENERAL ORDER CONSUELO Final Result [facility] [address] [place] [address], * Concentration (07/04/2025 8:52 AM EDT) AFB Concentration Performed 025 4:05 PM EST [facility] Wash Structure of lower lobe of left lung / Unknown 07/04/2025 8:52 AM EDT 07/04/2025 9:37 AM EDT Narrative [facility] - 08/16/2025 4:05 PM EST Performed at: [facility] [address] [id number] Workers [employer] Claims Supervisor: Jacqueline Velazquez MD, Phone: [phone] us Marilyn Chavira MD LAB BLOOD ORDERABLES Edited Resu lt - Final [facility] * Culture, afb and smear with reflex to identification and susceptibility (07/04/2025 8:52 AM EDT) AFB Specimen Processing Concentration 08/16/2025 4:05 PM EST [facility] Acid Fast Smear Negative 08/16/2025 4:05 PM EST [facility] Acid Fast Culture Negative 08/16/2025 4:05 PM EST [facility] Comment:No acid fast bacilli isolated after 6 weeks. Wash Structure of lower lobe of left lung / Unknown 07/04/2025 8:52 AM EDT 07/04/2025 9:37 AM EDT Narrative [facility] - 08/16/2025 4:05 PM EST Performed at: [facility] [address] [id number] Workers Compensation Claims Supervisor: Jacqueline Velazquez MD, Phone: [phone] us Marilyn Chavira MD LAB MICROBIOLOGY - GENERAL ORDER CONSUELO Final Result Performing Organization Address City/[facility]/ZIP Co de Phone Number [facility] * Acid fast bacilli stain (07/04/2025 8:52 AM EDT) AFB Stain Result No Acid fast bacilli seen on direct smear (Fuchsin method, 1000x) No Acid Fast Bacilli seen on direct smear 07/04/2025 6:39 PM EDT [facility] Wash Structure of lower lobe of left lung / Unknown 07/04/2025 8:52 AM EDT 07/04/2025 9:37 AM EDT us Marilyn Chavira MD LAB MICROBIOLOGY - GENERAL ORDER CONSUELO Final Result Performing Organization Address City/[facility]/ZIP Co de Phone Number [facility] [address] [place] [address], [place] [phone] * Culture fungal, other (07/04/2025 8:52 AM EDT) Culture, Fungus Negative for Fungus after 4 Weeks 08/01/2025 8:25 AM EST [facility] Wash Structure of lower lobe of left lung / Unknown 07/04/2025 8:52 AM EDT 07/04/2025 9:37 AM EDT us Marilyn Chavira MD LAB MICROBIOLOGY - GENERAL ORDER CONSUELO Final Result Performing Organization Address [facility]/ZIP Co de Phone Number [facility] [address] [place] [address], [place] [phone] * Tissue exam (07/04/2025 8:47 AM EDT) Final Diagnosis Lung, Left Lower Lobe-biopsy -TWO FRAGMENTS OF PULMONARY ALVEOLAR TISSUE WITH NO SPECIFIC PATHOLOGIC CHANGE 9:51 AM EDT [facility] at 0951 EDT Gross Description A. Lung, Left Lower Lobe, nodule: Labeled nodule lung LLL . Received in formalin are two soft, jasso-white to pink tissue fragments measuring approximately 0.15 cm in greatest diameter, which are wrapped in paper and submitted in toto in two cassettes, one piece each (unstained slide one H&E, +6 unstained slides for potential immunohistochemical stains and one H&E), conserving tissue in each block. TS 9:51 AM EDT [facility] Disclaimer Unless otherwise specified, all tissue is 10% NB formalin fixed and paraffin embedded. 9:51 AM EDT [facility] Tissue Structure of lower lobe of left lung / Unknown 07/04/2025 8:47 AM EDT 07/04/2025 9:49 AM EDT Marilyn Chavira MD LAB PATHOLOGY ORDERABLES Final R esult [facility] [address] [place] [address], * Non-gynecologic cytology (07/04/2025 8:39 AM EDT) Final Diagnosis A. Lung, Left Lower Lobe, fine needle aspiration, (ThinPrep, cell block): Negative for malignancy No lesional material identified. B. Lung, Left Lower Lobe, Brushing, (ThinPrep, cell block): Negative for malignant cells. C. Lung, Left Lower Lobe, Washing, (ThinPrep, cell block): Negative for malignant cells. Acute inflammatory cells are present. D. Mediastinum, right paratracheal lymph node, fine needle aspiration, (ThinPrep, cell block): Negative for malignant cells. Benign lymph node elements present. 07/05/2025 12:09 PM EDT [facility] at 1209 EDT Specimen A Adequacy Specimen processed and examined, but unsatisfactory for eval of abnormal epithelial 07/05/2025 12:09 PM EDT [facility] Specimen B Adequacy Satisfactory for evaluation 07/05/2025 12:09 PM EDT [facility] Specimen C Adequacy Satisfactory for evaluation 07/05/2025 12:09 PM EDT [facility] Specimen D Adequacy Satisfactory for evaluation 07/05/2025 12:09 PM EDT [facility] Gross Description A. Lung, Left Lower Lobe, nodule: Received in Cytolyt is 30 ml of clear fluid. One ThinPrep is made. One cell block made. Cell block placed in formalin at 1100, total formalin fixation time is 10 hours B. Lung, Left Lower Lobe, Brushing: Received in Cytolyt is 30 ml of light pink fluid with brush. One ThinPrep is made. One cell block made. Cell block placed in formalin at 1100, total formalin fixation time is 10 hours. rp C. Lung, Left Lower Lobe, Washing: Received is 40 ml of light pink cloudy fluid. One ThinPrep and one cell block are made. Cell block placed in formalin at 1100, total formalin fixation time is 10 hours. rp D. Mediastinum, right paratracheal lymph node: Received in Cytolyt is 30 ml of light pink fluid. One ThinPrep is made. One cell block made. Cell block placed in formalin at 1100, total formalin fixation time is 10 hours rp 07/05/2025 12:09 PM EDT [facility] Disclaimer Unless otherwise specified, all tissue is 10% NB formalin fixed and paraffin embedded. Technical cytopathology services provided by [facility], at [address] [place] [id number] (CLIA # [id number]/Camden Minor MD, Ammunition Officer.) 07/05/2025 12:09 PM EDT [facility] Fine Needle Aspirate Structure of lower lobe of left lung / Unknown 07/04/2025 8:39 AM EDT 07/04/2025 10:28 AM EDT Brushing, function (observable entity) Structure of lower lobe of left lung / Unknown 07/04/2025 8:50 AM EDT 07/04/2025 10:22 AM EDT Specimen obtained by lavage (specimen) Structure of lower lobe of left lung / Unknown 07/04/2025 8:52 AM EDT 07/04/2025 10:24 AM EDT Specimen obtained by fine needle aspiration procedure (specimen) Mediastinal structure / Unknown 07/04/2025 8:57 AM EDT 07/04/2025 10:27 AM EDT us Marilyn Chavira MD LAB CYTOLOGY ORDERABLES Final Re sult [facility] [address] [place] [address], * TH AN ENDOTRACHEAL(NO CHARGE) (07/04/2025 8:17 AM EDT) Ching Chauhan CRNA - 07/04/2025 8:17 AM EDT Ching Tomas CRNA 07/04/2025 8:19 AM General Information and Staff Patient location during procedure: OR Performed by: Ching Tomas CRNA Authorized by: Jeri Malloy DO Intubation Airway not difficult Reason: elective Final Airway Details Successful airway: ETT Cuffed: yes Successful intubation technique: direct laryngoscopy Adjuncts used in placement: intubating stylet Endotracheal tube insertion site: oral Blade: Lester Blade size: #3 ETT size (mm): 8.5 Cormack-Lehane Classification: grade I - full view of glottis Placement verified by: chest auscultation and capnometry Measured from: lips ETT to lips (cm): 21 Ventilation between attempts: 2 hand mask Final airway type: endotracheal airway Indications and Patient Condition Indications for airway management: anesthesia and airway protection Sedation level: Yes Preoxygenated: yesSoft Tissue Damage: No Dentition Unchanged: Yes Patient position: neutral MILS maintained throughout Mask difficulty assessment: 2 - vent by mask + OA or adjuvant +/- NMBA Start Time: 07/04/2025 8:09 AMStop Time: 07/04/2025 8:09 AM Jeri Malloy DO ANESTHESIA ORDERABLES Final Res ult * CT Chest wo Contrast (06/27/2025 1:11 PM EDT) Anatomical Region Laterality Modality Body Computed Tomogra phy 07/05/2025 8:36 AM EDT Impressions 07/05/2025 9:01 AM EDT There are abnormalities in the posteromedial left lower lobe including some areas of calcification. Surgery is anticipated. -------- FINAL REPORT -------- Dictated By: Yohannes Barnett Dictated Date: 07/05/2025 08:36 ET Assigned Physician: Yohannes Barnett Reviewed and Electronically Signed By: Yohannes Barnett Signed Date: 07/05/2025 09:01 ET Workstation ID: [id number] Transcribed By: Self Edit Transcribed Date: 07/05/2025 08:36 ET Narrative 07/05/2025 9:01 AM EDT EXAMINATION: CT CHEST WITHOUT CONTRAST CLINICAL INFORMATION: Pulmonary nodules. Remote trauma. COMPARISON: Portions of previous CT 03/21/25 TECHNIQUE: Multidetector CT. Examination of the chest. Examination of the chest without IV contrast. Reformatting in the coronal and sagittal planes. DLP: 178 mGy-cm Dose optimization was performed including the use of low-dose iterative reconstruction technique with automatic exposure control based on patient size. Type of contrast: None Volume of IV contrast: None Volume of contrast discarded: 0 mL FINDINGS: LUNG: No suspicious abnormality of the trachea or mainstem bronchi. Irregular somewhat linear peripheral nodule posteromedial left lower lobe 06/27/25-1.2 x 0.7 cm (4/144) 03/21/25-1.6 x 1.3 cm (/72) There is a partially calcified nodule more centrally in the posteromedial left lower lobe 06/27/25-1.1 cm (4/146) 03/21/25-1.3 cm () Linear mostly calcified nodule posterior left lower lobe more inferiorly with some minimal associated ground glass disease appears unchanged (4/164) Unchanged curvilinear calcific or metallic density in the medial right upper lobe (4/121) There are a few branching calcified structures in the posteromedial right lower lobe which are unchanged (4/122). There is a small calcification in the posteromedial left lower lobe which is unchanged (4/205). MEDIASTINUM: There are no enlarged mediastinal or hilar lymph nodes. No suspicious abnormality of the esophagus CARDIAC: The heart is not enlarged. No pericardial fluid or thickening CORONARY CALCIFICATION: No coronary calcifications demonstrated. VASCULAR: There is no thoracic aortic aneurysm. The main pulmonary artery is normal caliber PLEURA: There is no pleural fluid or pneumothorax AXILLA/CHEST WALL: There are no enlarged axillary lymph nodes. No chest wall mass demonstrated VISUALIZED UPPER ABDOMEN: No suspicious abnormality on limited assessment of the visualized upper abdomen MUSCULOSKELETAL: No suspicious focal bony lesion. Chronic deformity of the sternum could be from old injury. There is opaque cement at T6 where there is at least mild volume loss. Procedure Note Yohannes Barnett MD - 07/05/2025 EXAMINATION: CT CHEST WITHOUT CONTRAST CLINICAL INFORMATION: Pulmonary nodules. Remote trauma. COMPARISON: Portions of previous CT 03/21/25 TECHNIQUE: Multidetector CT. Examination of the chest. Examination of the chest without IV contrast. Reformatting in the coronal and sagittal planes. DLP: 178 mGy-cm Dose optimization was performed including the use of low-dose iterativereconstruction technique with automatic exposure control based on patientsize. Type of contrast: None Volume of IV contrast: None Volume of contrast discarded: 0 mL FINDINGS: LUNG: No suspicious abnormality of the trachea or mainstem bronchi. Irregular somewhat linear peripheral nodule posteromedial left lowerlobe 06/27/25-1.2 x 0.7 cm (4/144) 03/21/25-1.6 x 1.3 cm (/72) There is a partially calcified nodule more centrally in the posteromedialleft lower lobe 06/27/25-1.1 cm (4/146) 03/21/25-1.3 cm (/) Linear mostly calcified nodule posterior left lower lobe more inferiorlywith some minimal associated ground glass disease appears unchanged(4/164) Unchanged curvilinear calcific or metallic density in the medial rightupper lobe (4/121) There are a few branching calcified structures in the posteromedial rightlower lobe which are unchanged (4/122). There is a small calcification in the posteromedial left lower lobe whichis unchanged (4/205). MEDIASTINUM: There are no enlarged mediastinal or hilar lymph nodes. Nosuspicious abnormality of the esophagus CARDIAC: The heart is not enlarged. No pericardial fluid or thickening CORONARY CALCIFICATION: No coronary calcifications demonstrated. VASCULAR: There is no thoracic aortic aneurysm. The main pulmonary arteryis normal caliber PLEURA: There is no pleural fluid or pneumothorax AXILLA/CHEST WALL: There are no enlarged axillary lymph nodes. No chestwall mass demonstrated VISUALIZED UPPER ABDOMEN: No suspicious abnormality on limited assessmentof the visualized upper abdomen MUSCULOSKELETAL: No suspicious focal bony lesion. Chronic deformity ofthe sternum could be from old injury. There is opaque cement at T6 wherethere is at least mild volume loss. IMPRESSION: There are abnormalities in the posteromedial left lower lobe includingsome areas of calcification. Surgery is anticipated. -------- FINAL REPORT -------- Dictated By: Yohannes Barnett Dictated Date: 07/05/2025 08:36 ET Assigned Physician: Yohannes Barnett Reviewed and Electronically Signed By: Yohannes [place] Signed Date: 07/05/2025 09:01 ET Workstation ID: [id number] Transcribed By: Self Edit Transcribed Date: 07/05/2025 08:36 ET us Marilyn Chavira MD IMG CT PROCEDURES Final Result * ECG 12 lead - Procedural (No Charge) (06/27/2025 12:39 PM EDT) [facility] Ventricular Rate ECG 63 BPM GEMUSE Atrial Rate 63 BPM GEMUSE P-R Interval 150 ms GEMUSE QRS Duration 78 ms GEMUSE Q-T Interval 396 ms GEMUSE QTc 405 ms GEMUSE P Wave [place] 29 degrees GEMUSE R [place] 74 degrees GEMUSE T [place] 62 degrees GEMUSE ECG Interpretation Normal sinus rhythm Normal ECG When compared with ECG of 24-APR-2015 13:09, Nonspecific T wave abnormality no longer evident in Inferior leads Confirmed by Aurelia CASTILLO, MAT ([id number]) on 06/27/2025 5:55:35 PM GEMUSE 06/27/2025 12:3 9 PM EDT 06/27/2025 5:55 PM EDT us Marilyn Chavira MD ECG ORDERABLES Final Result GEMUSE * (ABNORMAL) CBC auto differential (06/27/2025 12:31 PM EDT) [facility] WBC 3.9(L) 4.8 - 10.8 K/mcL LAB HEMETOLOGY METHOD 06/27/2025 12:57 PM EDT [facility] RBC 4.40(L) 4.50 - 5.50 M/[facility] LAB HEMETOLOGY METHOD 06/27/2025 12:57 PM EDT [facility] Hemoglobin 13.3(L) 13.5 - 17.5 g/dL LAB HEMETOLOGY METHOD 06/27/2025 12:57 PM EDT [facility] Hematocrit 38.3(L) 42.0 - 54.0 % LAB HEMETOLOGY METHOD [facility] MCV 87.4 79.0 - 98.0 FL LAB HEMETOLOGY METHOD 06/27/2025 12:57 PM [facility] MCH 30.4 27.0 - 32.0 pcg LAB HEMETOLOGY METHOD 06/27/2025 12:57 [facility] MCHC 34.7 32.0 - 37.0 g/dL LAB HEMETOLOGY METHOD 06/27/2025 12:57 PM [facility] RDW 12.4 11.0 - 15.0 % LAB HEMETOLOGY METHOD 06/27/2025 12:57 PM [facility] Platelets 287 130 - 400 K/mcL LAB HEMETOLOGY METHOD 06/27/2025 12:57 PM [facility] MPV 9.7 7.0 - 11.0 FL LAB HEMETOLOGY METHOD 06/27/2025 12:57 PM [facility] NRBC 0.0 <1.0 % LAB HEMETOLOGY METHOD 06/27/2025 12:57 PM [facility] NRBC Absolute 0.00 <0.10 K/mcL LAB HEMETOLOGY METHOD 06/27/2025 12:57 PM [facility] Neutrophils Relative 56.4 % LAB HEMETOLOGY METHOD 06/27/2025 12:57 PM [facility] Lymphocytes Relative 30.9 % LAB HEMETOLOGY METHOD 06/27/2025 12:57 PM [facility] Monocytes Relative 10.2 % LAB HEMETOLOGY METHOD 06/27/2025 12:57 PM [facility] Eosinophils Relative 2.0 % LAB HEMETOLOGY METHOD 06/27/2025 12:57 PM EDT [facility] Basophils Relative 0.5 % LAB HEMETOLOGY METHOD 06/27/2025 12:57 PM EDT [facility] Immature Granulocytes Relative 0.0 % LAB HEMETOLOGY METHOD 06/27/2025 12:57 PM EDT [facility] Neutrophils Absolute 2.20 1.50 - 7.00 K/mcL LAB HEMETOLOGY METHOD 06/27/2025 12:57 PM EDT [facility] Lymphocytes Absolute 1.21 1.00 - 5.00 K/mcL LAB HEMETOLOGY METHOD 06/27/2025 12:57 PM EDT [facility] Monocytes Absolute 0.40 0.20 - 1.00 K/mcL LAB HEMETOLOGY METHOD 06/27/2025 12:57 PM EDT [facility] Eosinophils Absolute 0.08 0.00 - 0.50 K/mcL LAB HEMETOLOGY METHOD 06/27/2025 12:57 PM EDT [facility] Basophils Absolute 0.02 0.00 - 0.20 K/mcL LAB HEMETOLOGY METHOD 06/27/2025 12:57 PM EDT [facility] Immature Granulocytes Absolute 0.00 0.00 - 0.03 K/mcL LAB HEMETOLOGY METHOD 06/27/2025 12:57 PM EDT [facility] Blood Venous blood specimen / Unknown Venipuncture / Unknown 06/27/2025 12:31 PM EDT 06/27/2025 12:47 PM EDT us Marilyn Chavira MD LAB BLOOD ORDERABLES Final Resul t [facility] [address] [place] [address], * Activated partial thromboplastin time (06/27/2025 12:31 PM EDT) aPTT 32.6 24.1 - 39.3 sec LAB COAGULATION METHOD 06/27/2025 12:58 PM EDT [facility] Blood Venous blood specimen / Unknown Venipuncture / Unknown 06/27/2025 12:31 PM EDT 06/27/2025 12:47 PM EDT us Marilyn Chavira MD LAB BLOOD ORDERABLES Final Resul t Performing Organization Address City/[facility]/ZIP Co de Phone Number [facility] [address] [place] [address], [place] [phone] * Prothrombin time with INR (06/27/2025 12:31 PM EDT) Protime 11.7 10.6 - 13.9 sec LAB COAGULATION METHOD 06/27/2025 12:58 PM EDT [facility] INR 0.9 LAB COAGULATION METHOD 06/27/2025 12:58 PM EDT [facility] Blood Venous blood specimen / Unknown Venipuncture / Unknown 06/27/2025 12:31 PM EDT 06/27/2025 12:47 PM EDT us Marilyn Chavira MD LAB BLOOD ORDERABLES Final Resul t Performing Organization Address [facility]/ZIP Co de Phone Number [facility] [address] [place] [address], [place] [phone] * Type and screen (06/27/2025 12:31 PM EDT) ABO Group O 06/27/2025 3:03 PM EDT [facility] Rh Type Negative 06/27/2025 3:03 PM EDT [facility] Antibody Screen Negative 06/27/2025 3:03 PM EDT [facility] Blood Venous blood specimen / Unknown Venipuncture / Unknown 06/27/2025 12:31 PM EDT 06/27/2025 12:47 PM EDT us Marilyn Chavira MD LAB BLOOD BANK TEST ORDERABLES F inal Result [facility] [address] [place] [address], [place] [phone] * Basic metabolic panel (06/27/2025 12:31 PM EDT) Pathologist [facility] Sodium 138 133 - 145 mmol/L LAB CHEMISTRY METHOD 06/27/2025 1:09 PM [facility] Potassium 4.3 3.5 - 5.5 mmol/L LAB CHEMISTRY METHOD 06/27/2025 1:09 PM [facility] Chloride 105 96 - 110 mmol/L LAB CHEMISTRY METHOD 06/27/2025 1:09 PM [facility] CO2 27 21 - 32 mmol/L LAB CHEMISTRY METHOD 06/27/2025 1:09 PM [facility] Anion Gap 6 3 - 11 LAB CHEMISTRY METHOD 06/27/2025 1:09 PM [facility] Glucose 89 70 - 100 mg/dL LAB CHEMISTRY METHOD 06/27/2025 1:09 PM [facility] BUN 10 5 - 25 mg/dL LAB CHEMISTRY METHOD 06/27/2025 1:09 PM [facility] Creatinine 0.78 0.70 - 1.30 mg/dL LAB CHEMISTRY METHOD 06/27/2025 1:09 PM [facility] eGFR 111 >=60 mL/min/1. 73m2 LAB CHEMISTRY METHOD 06/27/2025 1:09 PM [facility] Comment:Calculation based on the Chronic Kidney Disease Epidemiology Collaboration (CKD-EPI) equation refit without adjustment for race. BUN/Creatinine Ratio 12.8 LAB CHEMISTRY METHOD 06/27/2025 1:09 PM EDT [facility] Calcium 9.3 8.5 - 10.5 mg/dL LAB CHEMISTRY METHOD 06/27/2025 1:09 PM EDT [facility] ([facility] Blood Venous blood specimen / Unknown Venipuncture / Unknown 06/27/2025 12:31 PM EDT 06/27/2025 12:47 PM EDT us Marilyn Chavira MD LAB BLOOD ORDERABLES Final Resul t [facility] ([facility]) [facility] [address] [place] [address], [place] [phone] from Last 3 Months Insurance [facility] [employer] PL[employer] Advance Directives * Full Code - Default (Latest Code Status on File) Date Activated Date Inactivated Comments 07/04/2025 7:17 AM 07/04/2025 12:49 PM This is o rder is used when code status has not been discussed with the patient, or code status is otherwise unknown/unconfirmed To update the patient's code status, place a code status order. Do not modify or discontinue any currently active code status orders. Care Teams Manager Cath Lab Relationship Specialty Start Date End Date Ciro Reynoso NP [address] [place] [address] PCP - General Family Medicine 06/26/25
--- OUTSIDE RECORDS SUMMARY | 2025-08-27 06:46 | XMS_ITS | Encounter Summary ---
Author Organization [facility] Address [address] [facility] [address] [place] [address] Phone Care Team Providers Care Chronic Specialist Name Role Phone Ciro Reynoso CROWN IRONER OPERATOR Primary Care Provider + Encounter Details Date Type Department Care Team (Late st Contact Info) Description 2022 Procedure Pass [facility], Ct Scan - [address] [address] Social History Tobacco Use Types Packs/Day Years [...] 2022 7:44 AM Alethea Healy RN * [place] Suicide Severity Rating Scale (Screener/Recent Self-Report) Question [...] on filedocumented in this encounter Care Teams Chronic Specialist Relationship Specialty Start Date End Date Ciro Reynoso NP [facility] [place] [address] PCP - General Nurse Practitioner 10/22/22 documented as of this encounter Additional Source Comments The information contained in this document represents components of the legal health record. It is not the complete legal health record.[facility]
--- OUTSIDE RECORDS SUMMARY | 2025-08-27 06:46 | XMS_ITS | Encounter Summary ---
Author Organization [facility] Address [address] [place] [address] Phone Care Team Providers Care Pediatric Psychologist Name Role Phone Ciro Reynoso SOAP GRINDER Primary Care Provider + Encounter Details Date Type Department Care Team (Late st Contact Info) Description 05/28/2024 Procedure Pass [facility], [address] [place] [address] Social History Tobacco Use Types Packs/Day Years Used Date Smoking Tobacco: Never Assessed Education Answer Date Recorded Are you interested in more education? Not on zainab e 01/15/2023 Are you concerned about learning? Not on file 01/15/2023 No 01/15/2023 No 01/15/2023 Digital Access Answer Date Recorded No 02/15/2023 No 02/15/2023 Reliable internet access at home? Not on file 02/15/2023 Device with a working camera? Not on file Sex and Gender Information Value Date Recorded Sex Assigned at Male 07/27/2024 3:15 PM EST Legal Sex Male 7:22 AM EST Gender Identity Male 07/27/2024 3:15 PM EST Sexual Orientation Straight 07/27/2024 3: 15 PM EST documented as of this encounter Plan of Treatment Not on file documented as of this encounter Visit Diagnoses Not on filedocumented in this encounter Care Teams Pediatric Psychologist Relationship Specialty Start Date End Date Ciro Reynoso NP [address] [place] [place] [address] PCP - General Nurse Practitioner 10/22/22 documented as of this encounter Additional Source Comments The information contained in this document represents components of the legal health record. It is not the complete legal health record.[facility]
--- OUTSIDE RECORDS SUMMARY | 2025-08-27 06:46 | XMS_ITS | Encounter Summary ---
Author Organization [facility] Address [address] [facility] [address] [place] [address] Phone Care Team Providers Care Engineering Librarian Name Role Phone Ciro Reynoso WELDER PLASMA [employer] Primary Care Provider + Encounter Details Date Type Department Care Team (Late st Contact Info) Description 2022 Procedure Pass [facility], Ct Scan - [address] [address] Social History Tobacco Use Types Packs/Day Years [...] 2022 7:44 AM Alethea Healy RN * [place] Suicide Severity Rating Scale (Screener/Recent Self-Report) Question [...] on filedocumented in this encounter Care Teams Engineering Librarian Relationship Specialty Start Date End Date Ciro Reynoso NP [facility] [place] [address] PCP - General Nurse Practitioner 10/22/22 documented as of this encounter Additional Source Comments The information contained in this document represents components of the legal health record. It is not the complete legal health record.[facility]
--- OUTSIDE RECORDS SUMMARY | 2025-08-27 06:46 | XMS_ITS | Encounter Summary ---
Author Organization [facility] Address [address] [place] [address] Phone Care Team Providers Care Packing Machine Can Feeder Name Role Phone Ciro Reynoso DRIVER HELPER Primary Care Provider + Encounter Details Date Type Department Care Team (Late st Contact Info) Description 01/20/2025 Procedure Pass [facility], Ct Scan - [address] [address] Social History Tobacco Use Types Packs/Day Years [...] 11:25 AM EDT Kelsi Jin RN * [place] Suicide Severity Rating Scale (Screener/Recent Self-Report) Question [...] on filedocumented in this encounter Care Teams Packing Machine Can Feeder Relationship Specialty Start Date End Date Ciro Reynoso NP [facility] [place] [address] PCP - General Nurse Practitioner 10/22/22 documented as of this encounter Additional Source Comments The information contained in this document represents components of the legal health record. It is not the complete legal health record.[facility]
--- OUTSIDE RECORDS SUMMARY | 2025-08-27 06:47 | XMS_ITS | Clinical Summary ---
Author Organization [facility] Address [address] [facility] [address] [place] [address] Phone Care Team Providers Care Field Clinical Engineer Name Role Phone Ciro Reynoso BOARDING KENNEL OR CATTERY OPERATOR Primary Care Provider + Allergies Active Allergy Reactions Criticality Noted Date Comments Ragweed 02/08/2025 Shellfish Containing Products 2022 Medications DULoxetine (CYMBALTA) 20 MG capsule TAKE 1 CAPSULE BY MOUTH DAILY AFTER BREAKFAST. 4 Active methylphenidate HCl (RITALIN) 10 MG tablet 4 Active oxyCODONE 5 MG immediate release tablet Take 1-2 tablets (5-10 mg total) by mouth every 4 (four) hours as needed. Partial fill ok 30 tablet 4 Active Additional Information Patient not taking.Reported on 08/13/2024 gabapentin (NEURONTIN) 100 MG capsule Take 1 capsule (100 mg total) by mouth 3 (three) times a day for 5 days. 15 capsule 5 Active ibuprofen (ADVIL,MOTRIN) 600 MG tablet Take 1 tablet (600 mg total) by mouth every 6 (six) hours for 5 days. 20 tablet 5 Active ibuprofen (ADVIL,MOTRIN) 600 MG tablet Take 1 tablet (600 mg total) by mouth every 6 (six) hours as needed for pain (specific location in comments). 25 tablet 5 Active dextroamphetami ne-amphetamine (ADDERALL XR) 10 MG 24 hr capsule Take 10 mg by mouth every morning. 5 Active cetirizine HCl (ZYRTEC ORAL) Take by mouth. A ctive ADDERALL XR 15 mg 24 hr capsule Take 15 mg by mouth every morning. 5 Active DULoxetine (CYMBALTA) 60 MG capsule Take 60 mg by mouth daily. Take two capsules by mouth daily after breakfast 5 Active Active Problems No known active problems Social History Tobacco Use Types Packs/Day Years Used Date Smoking Tobacco: Never Smokeless Tobacco: Never Tobacco Cessation:Counseling Given: Not Answered Alcohol Use Standard Drinks/Week Comments Never 0 (1 standard drink = 0.6 oz pur e alcohol) Education Answer Date Recorded Are you interested in more education? Not on zainab e 01/15/2023 Are you concerned about learning? Not on file 01/15/2023 No 01/15/2023 No 01/15/2023 Food Answer Date Recorded Within the past 6 months we worried whether our food would run out before we got money to buy more. Sometimes True 025 Within the past 6 months the food we bought just didn't last and we didn't have enough money to get more. Sometimes True 01/18 Residential Stability Answer Date Recor ded What is your housing situation today? I have corie sing 02/05/2025 How many times have you move d in the past 12 months? Zero (I did not move) 02/05/2025 Paying for Meds Answer Date Recorded Do you have trouble paying for medicines? No 02/05/2025 Paying Utility Bills Answer Date Record ed Do you have trouble paying your heating or elect ricity bill? No 02/05/2025 Transportation Answer Date Recorded Has the lack of transportati on kept you from medical appointments or from getting medications? No 02/05/2025 Digital Access Answer Date Recorded No 02/05/2025 Yes 02/05/2025 Do you have reliable internet access at home? Ye s 02/05/2025 Do you have a device (e.g., phone, tablet, computer) with a working camera? Yes 02/05/2025 Intimate Partner Violence Answer Date R ecorded Are you denied basic needs s uch as food, clothing, or medical care? No 05/27/2025 In the past 12 months have y ou been in a relationship with a person who hurts, threatens, or tries to control you? No 05/27/2025 Are you denied basic needs s uch as food, clothing, or medical care? No 05/27/2025 In the past 12 months have y ou been in a relationship with a person who hurts, threatens, or tries to control you? No 05/27/2025 Sex and Gender Information Value Date Recorded Sex Assigned at Male 07/27/2024 3:15 PM EST Legal Sex Male 7:22 AM EST Gender Identity Male 07/27/2024 3:15 PM EST Sexual Orientation Straight 07/27/2024 3: 15 PM EST Last Filed Vital Signs Vital Sign Reading Time Taken Comments Blood Pressure 140/84 05/27/2025 8:04 PM EDT Pulse 86 05/27/2025 8:04 PM EDT Temperature 36.1 C (97 F) 05/27/2025 4:49 PM EDT Respiratory Rate 17 05/27/2025 8:04 PM EDT Oxygen Saturation 98% 05/27/2025 8:04 PM EDT Inhaled Oxygen Concentration - - Weight 81.6 kg (180 lb) 05/27/2025 4:49 PM EDT Height 182.9 cm (6') 05/27/2025 4:49 PM EDT Body Mass Index 24.41 05/27/2025 4:49 PM EDT Plan of Treatment Health Maintenance Due Date Last Done Comments Adult Td,Tdap Booster 1978 LIPID PANEL 1978 DEPRESSION SCREENING 1990 HEPATITIS C SCREENING 1996 HIV ONE-TIME SCREENING (18-6 5 YEARS) 1996 COLOGUARD 2023 COLONOSCOPY 2023 COLORECTAL CANCER SCREENING 2023 FIT TEST 2023 FOBT 2023 SIGMOIDOSCOPY 2023 VIRTUAL COLONOSCOPY 2023 INFLUENZA VACCINE (#1) 2025 COVID-19 VACCINE (1 - 2024-2 6 season) 2025 SMOKING STATUS SCREENING (On ce After 26 Yrs) Completed 05/27/2025 HEPATITIS A VACCINES Aged Out No long er eligible based on patient's age to complete this topic HIB VACCINES Aged Out No longer eligi ble based on patient's age to complete this topic MENINGOCOCCAL VACCINES (ACWY) Aged Out No longer eligible based on patient's age to complete this topic MENINGOCOCCAL VACCINES (B) Aged Out N o longer eligible based on patient's age to complete this topic PNEUMOCOCCAL VACCINES (0-49 years) Aged Out No longer eligible based on patient's age to complete this topic Medical Devices Implanted Type Area Residential Electrician Device Identifier Shelf Expiration Date Model / Serial / Lot Ship[place]ana Suture 4.5mm Arthroscopy Reelx Stt Peek Ss Core Knotless Shapr Tip Expandable Bx/5ea - [id number] Implanted:Qty: 1 on 07/30/2024 by Jose C Wheeler DO at [facility] Left: Acromial Process JOCE ENDOSCOPY [id number] 02/28/2026 [facility]0-600- 062 / / [id number] Ship[place]wana Suture 4.5mm Arthroscopy Reelx Stt Peek Ss Core Knotless Shapr Tip Expandable Bx/5ea - [id number] Implanted:Qty: 1 on 07/30/2024 by Jose C Wheeler DO at [facility] Left: Acromial Process JOCE ENDOSCOPY [id number] 03/02/2026 [facility]600- 062 / / [id number] Shipshewana Suture 4.5mm Arthroscopy Reelx Stt Peek Ss Core Knotless Shapr Tip Expandable Bx/5ea - [id number] Implanted:Qty: 1 on 07/30/2024 by Jose C Wheeler DO at [facility] Left: Acromial Process JOCE ENDOSCOPY [id number] 03/02/2026 [facility]600- 062 / / [id number] Healicoil Regenesorb 4.75 Mm Sutue Shipshewana With Three Minitape Sutures Implanted:Qty: 1 on 07/30/2024 by Jose C Wheeler DO at [facility] Left: Acromial Process HER AND NEPHEW / / [id number] Insurance [facility] [place] [address] [place] [address] ACO [facility] ACO [facility] ACO [facility] ACO Member Subscriber Plan / Payer (Ef fective 2022-Present) Name:Jack Ramires Relation to Subscriber:Self Name:Jack Ramires Payer ID:[id number] Group ID:[id number] Type:Medicaid Address: [address] Care Teams Field Clinical Engineer Relationship Specialty Start Date End Date Ciro Reynoso NP [facility] [place] [address] PCP - General Nurse Practitioner 10/22/22 Additional Source Comments The information contained in this document represents components of the legal health record. It is not the complete legal health record.[facility]
--- OUTSIDE RECORDS SUMMARY | 2025-08-27 06:47 | XMS_ITS | Encounter Summary ---
Author Organization [facility] Address [address] [place] [address] Phone Care Team Providers Care Tetryl Wringer Operator Name Role Phone Ciro Reynoso EDUCATIONAL THERAPY TEACHER Primary Care Provider + Encounter Details Date Type Department Care Team (Late st Contact Info) Description 02/08/2025 Procedure Pass [facility], X-Ray - [address] [address] Social History Tobacco Use Types Packs/Day Years [...] as food, clothing, or medical care? No 02/05/2025 In the past 12 months have y ou been in a relationship with a person who hurts, threatens, or tries to control you? No 02/05/2025 Are you denied basic needs s uch as food, clothing, or medical care? No 02/05/2025 In the past 12 months have y ou been in a relationship with a person who hurts, threatens, or tries to control you? No 02/05/2025 Sex and Gender Information Value Date Recorded Sex Assigned at Male 07/27/2024 3:15 PM EST Legal Sex Male 7:22 AM EST Gender Identity Male 07/27/2024 3:15 PM EST Sexual Orientation Straight 07/27/2024 3: 15 PM EST documented as of this encounter Plan of Treatment Not on file documented as of this encounter Visit Diagnoses Not on filedocumented in this encounter Care Teams Tetryl Wringer Operator Relationship Specialty Start Date End Date Ciro Reynoso NP [facility] [place] [address] PCP - General Nurse Practitioner 10/22/22 documented as of this encounter Additional Source Comments The information contained in this document represents components of the legal health record. It is not the complete legal health record.[facility]
--- OUTSIDE RECORDS SUMMARY | 2025-08-27 06:47 | XMS_ITS | Encounter Summary ---
Author Organization [facility] Address [address] [place] [address] Phone Care Team Providers Care Child Specialist Name Role Phone Ciro Reynoso ACCOUNTS RECEIVABLE ASSOCIATE Primary Care Provider + Encounter Details Date Type Department Care Team ([facility] st Contact Info) Description 02/05/2025 Procedure Pass [facility], Ct Scan - [address] [address] Social History Tobacco Use Types Packs/Day Years [...] your housing situation today? I have corie jane 02/05/2025 How many times have you move [...] Date of Assessment Author No Risk Indicated 02/05/2025 4:36 PM EDT Dilshad Arenas RN * [place] Suicide Severity Rating Scale (Screener/Recent Self-Report) Question Answer Date of Assessment Author 1. Wish to be (Past 1 Month) No 025 4:36 PM EDT Dilshad Arenas, ALEX 2. Non-Specific Active Suici cornell Thoughts (Past 1 Month) No 02/05/2025 4:36 PM EDT Dilshad Arenas, ALEX 6. Suicidal Behavior (Lifetime) No 4:36 PM EDT Dilshad Arenas, RN documented as of this encounter Plan of Treatment Not on file documented as of this encounter Visit Diagnoses Not on filedocumented in this encounter Care Teams Child Specialist Relationship Specialty Start Date End Date Ciro Reynoso NP [facility] [place] [address] PCP - General Nurse Practitioner 10/22/22 documented as of this encounter Additional Source Comments The information contained in this document represents components of the legal health record. It is not the complete legal health record.[facility]
--- OUTSIDE RECORDS SUMMARY | 2025-08-27 06:47 | XMS_ITS | Encounter Summary ---
Author Organization [facility] Address [address] [place] [id number] Phone Care Team Providers Care Acquisitions Librarian Name Role Phone Ciro Reynoso PIN PULLER Primary Care Provider + Encounter Details Date Type Department Care Team (Late st Contact Info) Description 02/08/2025 Procedure Pass [facility], [address] [address] Social History Tobacco Use Types Packs/Day Years [...] is your housing situation today? I have corierubén jane 02/05/2025 How many times have you [...] on filedocumented in this encounter Care Teams Acquisitions Librarian Relationship Specialty Start Date End Date Ciro Reynoso NP [facility] [place] [address] PCP - General Nurse Practitioner 10/22/22 documented as of this encounter Additional Source Comments The information contained in this document represents components of the legal health record. It is not the complete legal health record.[facility]
--- OUTSIDE RECORDS SUMMARY | 2025-08-27 06:47 | XMS_ITS | Encounter Summary ---
Author Organization [facility] Address [address] [place] [id number] Phone Care Team Providers Care Institute Director Name Role Phone Ciro Reynoso LOG CUT OFF SAWYER Primary Care Provider + Encounter Details Date Type Department Care Team (Late st Contact Info) Description 08/09/2024 Procedure Pass [facility], Ct Scan - [address] [address] Social History Tobacco Use Types Packs/Day Years [...] Date of Assessment Author No Risk Indicated 08/09/2024 7:34 PM EST Sandy Hsieh RN * [place] Suicide Severity Rating Scale (Screener/Recent Self-Report) Question Answer Date of Assessment Author 1. Wish to be (Past 1 Month) No 08/09/2024 7:34 PM Estela Villa RN 2. Non-Specific Active Suicidal Thoughts (Past 1 Month) No 08/09/2024 7:34 PM Estela Villa RN 6. Suicidal Behavior (Lifetime) No 08/09/2024 7:34 PM Estela Villa RN documented as of this encounter Plan of Treatment Not on file documented as of this encounter Visit Diagnoses Not on filedocumented in this encounter Care Teams Institute Director Relationship Specialty Start Date End Date Ciro Reynoso NP [facility] [place] [address] PCP - General Nurse Practitioner 10/22/22 documented as of this encounter Additional Source Comments The information contained in this document represents components of the legal health record. It is not the complete legal health record.[facility]
--- OUTSIDE RECORDS SUMMARY | 2025-08-27 06:47 | XMS_ITS | Encounter Summary ---
Author Organization [facility] Address [address] [facility] [address] [place] [phone] Phone Care Team Providers Care Pump Installer Name Role Phone Ciro Reynoso [employer] Primary Care Provider + Encounter Details Date Type Department Care Team ([facility] st Contact Info) Description 07/30/2024 Procedure Pass [place] Admitting Dept - Virtual Department [address] [place] [address] Social History Tobacco Use Types Packs/Day Years [...] on filedocumented in this encounter Care Teams Pump Installer Relationship Specialty Start Date End Date Ciro Reynoso NP [facility] [place] [address] PCP - General Nurse Practitioner 10/22/22 documented as of this encounter Additional Source Comments The information contained in this document represents components of the legal health record. It is not the complete legal health record.[facility]
--- OUTSIDE RECORDS SUMMARY | 2025-08-27 06:47 | XMS_ITS | Encounter Summary ---
Author Organization [facility] Address [address] [place] [address] Phone Care Team Providers Care School Photographer Name Role Phone Ciro Reynoso NP Primary Care Provider + Reason for Referral * MRI/CAT Scan - Closed Specialty Diagnoses / Procedures Referred By Contac t Referred To Contact Radiology Diagnoses Other nonspecific abnormal finding of lung field Procedures CT Chest CHG DIAGNOSTIC COMPUTED TOMOGRAPHY THORAX W/O CNTRST Ciro Reynoso NP Phone: tel: fax: Referral ID Status Reason Start Date Expiration Date Visits Re quested Visits Authorized [id number] Closed 10/26/2024 12/25/2024 1 1 Encounter Details Date Type Department Care Team (Late st Contact Info) Description 08/22/2024 Transcribe Orders Virtual Department [address] [place] [address] Ciro Reynoso NP [facility] [place] [address] Other nonspecific abnormal finding of lung field (Primary Dx) Social History Tobacco Use Types Packs/Day Years [...] on file documented as of this encounter Results * CT CHEST WITHOUT CONTRAST (11/09/2024 8:12 AM EST) [facility] IMG RECOMMENDATION COMMENT nodular opacities left lower lobe [facility] Anatomical Region Laterality Modality Chest Computed Tomogra phy 11/13/2024 9:20 AM EST Impressions 11/13/2024 9:28 AM EST 1. Developing nodular opacities adjacent a calcified granuloma in the left lower lobe likely representing an infectious or inflammatory process including aspiration or nontuberculous mycobacterial infection. RECOMMEND: CT chest between 3 and 6 months for nodular opacities left lower lobe. Follow-up recommendations were communicated and documented using a closed loop communication system. Narrative 11/13/2024 9:[address] CHEST WITHOUT CONTRAST Referring clinician's provided indication for this examination in Epic: Outside Radiology Order; abnormal lung field TECHNIQUE: Multidetector CT of the chest was performed without intravenous contrast using tailored dose modulation. COMPARISON: CT CHEST PULMONARY ANGIOGRAM (ACUTE) FINDINGS: Devices/Tubes/Lines: None. Lungs: The central airways are patent. There are calcified granulomas in the lungs. Interval development of a few nodular opacities measuring up to 12 mm in the superior segment of the left lower lobe adjacent to a previously demonstrated calcified granuloma, 3:54. Pleura: Normal. No pleural effusion or pneumothorax. Mediastinum: Normal. No thyroid nodules. Heart and pericardium are normal. None. Lymph Nodes: Normal. No enlarged supraclavicular, axillary, mediastinal, or hilar lymph nodes. Upper Abdomen: Normal. No abnormality detected in the visualized upper abdomen. Absence of intravenous contrast limits sensitivity for detecting solid organ findings. Chest Wall: Normal. No chest wall mass. Bones: No suspicious lytic or blastic lesions. Unchanged T6 vertebral augmentation. Procedure Note Migue Romero MD - 11/13/2024 CT CHEST WITHOUT CONTRAST Referring clinician's provided indication for this examination in Epic:Outside Radiology Order; abnormal lung field TECHNIQUE: Multidetector CT of the chest was performed without intravenouscontrast using tailored dose modulation. COMPARISON: CT CHEST PULMONARY ANGIOGRAM (ACUTE) FINDINGS: Devices/Tubes/Lines: None. Lungs: The central airways are patent. There are calcified granulomas inthe lungs. Interval development of a few nodular opacities measuring up to 12 mm inthe superior segment of the left lower lobe adjacent to a previouslydemonstrated calcified granuloma, 3:54. Pleura: Normal. No pleural effusion or pneumothorax. Mediastinum: Normal. No thyroid nodules. Heart and pericardium are normal.None. Lymph Nodes: Normal. No enlarged supraclavicular, axillary, mediastinal,or hilar lymph nodes. Upper Abdomen: Normal. No abnormality detected in the visualized upperabdomen. Absence of intravenous contrast limits sensitivity for detectingsolid organ findings. Chest Wall: Normal. No chest wall mass. Bones: No suspicious lytic or blastic lesions. Unchanged T6 vertebralaugmentation. IMPRESSION: 1. Developing nodular opacities adjacent a calcified granuloma in theleft lower lobe likely representing an infectious or inflammatory processincluding aspiration or nontuberculous mycobacterial infection. RECOMMEND: CT chest between 3 and 6 months for nodular opacities leftlower lobe. Follow-up recommendations were communicated and documented using a closedloop communication system. Ciro Reynoso TIRE REPAIRMAN IMG CT CHEST Final Re sult documented in this encounter Visit Diagnoses Diagnosis Other nonspecific abnormal finding of lung field- Primary Other nonspecific abnormal finding of lung field documented in this encounter Care Teams School Photographer Relationship Specialty Start Date End Date Ciro Reynoso, TIMOTEO [facility] [place] [address] PCP - General Nurse Practitioner 10/22/22 documented as of this encounter Additional Source Comments The information contained in this document represents components of the legal health record. It is not the complete legal health record.[facility]
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
== END 2025-08-27 08:54 | disposition home or self-care (01) ==
LOC: HO.HMCC 06:43
PROVIDERS: PCP Nurse Practitioner Family; Visit Provider Nurse Practitioner Family
DX: S22.20XA Unspecified fracture of sternum, initial encounter for closed fracture (principal); S72.91XA Unspecified fracture of right femur, initial encounter for closed fracture; S06.9XAA Unspecified intracranial injury with loss of consciousness status unknown, initial encounter; Z04.3 Encounter for examination and observation following other accident; V89.2XXA Person injured in unspecified motor-vehicle accident, traffic, initial encounter; M25.512 Pain in left shoulder; M54.50 Low back pain, unspecified; G89.29 Other chronic pain; R53.81 Other malaise; M85.80 Other specified disorders of bone density and structure, unspecified site